=== PATIENT | female | born 1935 | race Caucasian/White ===

== ENCOUNTER → 2017-01-26 | Outpatient (CLI) | payer OTHER ==
[~2017-01-26] MED LIST: ASPI81CH2 PO; ATOR10TA82 PO; CLB/200 PO; MULT-506 PO
--- NOTE | 2017-01-27 08:28 | MAMMOGRAPHY REPORT ---
BILATERAL DIGITAL SCREENING MAMMOGRAM TOMOSYNTHESIS WITH CAD: 01/26/2017 CLINICAL HISTORY: Routine screening. Patient has no complaints. TECHNIQUE: Breast tomosynthesis in addition to standard 2D mammography was performed. Current study was also evaluated with a Computer Aided Detection (CAD) system. COMPARISON: Comparison is made to exams dated: 02/04/2016 mammogram, 02/04/2016 ultrasound, 01/24/2016 mammogram, 01/09/2015 mammogram, 11/07/2013 mammogram, and 11/03/2013 mammogram - [facility]. BREAST COMPOSITION: There are scattered areas of fibroglandular density in both breasts. FINDINGS: There are mild vascular calcifications and scattered benign-appearing round and punctate m icrocalcifications. Fluctuating masses in the lateral right breast were previously documented to re present simple cysts on ultrasound. No new suspicious mass, architectural distortion or cluster of microcalcifications is seen. IMPRESSION: ACR BI-RADS CATEGORY 1: NEGATIVE There is no mammographic evidence of malignancy. A 1 year screening mammogram is recommended. The p atient will receive written notification of the results. Approximately 10% of breast cancers are not detected with mammography. A negative mammographic repor t should not delay biopsy if a clinically suggestive mass is present. Helga De La Garza M.D. ay/:01/26/2017 17:29:02 Nurse Coordinator: Aarti WORRELL(Lita)(M), [facility] letter sent: Normal 1/2 BI-RADS Code: ACR BI-RADS Category 1: Negative
== END | disposition home or self-care (01) ==
LOC: C.MAMM 11:10
PROVIDERS: ATTEND Internal Medicine
DX: Z12.31 Encounter for screening mammogram for malignant neoplasm of breast (principal)

== ENCOUNTER → 2017-05-10 | Outpatient (CLI) | payer OTHER ==
[~2017-05-10] MED LIST changes: -ATOR10TA82 PO; +ATOR10TA88 PO
[2017-05-10 09:56] LABS: ALT/SGPT 31 U/L (12-78); AST/SGOT 26 U/L (15-37); BLOOD UREA NITROGEN 24 mg/dl (7-18); BUN/CREATININE RATIO 21.5 (10-20); CALCIUM 9.2 mg/dl (8.5-10.1); CARBON DIOXIDE 29 mmol/L (21-32); CHLORIDE 108 mmol/L (98-107); CHOLESTEROL 168 mg/dl (0-200); GLUCOSE 109 mg/dl (70-99); POTASSIUM 4.1 mmol/L (3.5-5.1); SODIUM 142 mmol/L (136-145); TRIGLYCERIDES 68 mg/dl (0-150); VERY LOW DENSITY LIPOPROT CALC 14 mg/dl
[2017-05-10 09:59] LABS: CHOLESTEROL/HDL RATIO 2.5; HDL CHOLESTEROL 66 mg/dl; LDL CHOLESTEROL CALCULATED 88 mg/dl
== END | disposition home or self-care (01) ==
LOC: C.LAB1850 07:31
PROVIDERS: ATTEND Internal Medicine
DX: E78.5 Hyperlipidemia, unspecified (principal); M81.0 Age-related osteoporosis without current pathological fracture

== ENCOUNTER → 2017-05-24 | Outpatient (CLI) | payer OTHER | END | disposition home or self-care (01) | LOC: C.MAMM 14:55 | PROVIDERS: ATTEND Internal Medicine | DX: M85.851 Other specified disorders of bone density and structure, right thigh (principal); M85.852 Other specified disorders of bone density and structure, left thigh; M85.88 Other specified disorders of bone density and structure, other site ==

== ENCOUNTER 2017-11-23 17:25 | Inpatient (IN) | payer OTHER ==
[~2017-11-23] VITALS: Ht 157.5 cm; Wt 57.2 kg
[~2017-11-23 17:25] MED LIST changes: -APIX1TAB3 PO; -CALC600T37 PO; -CHOL1000 PO; -MULT-190 PO; -OMEG10007 PO
[2017-11-23] MEDS ORDERED: MULT-190 PO (17:56)
[2017-11-23] MEDS ORDERED: CALC600T37 PO (17:56)
[2017-11-23] MEDS ORDERED: CHOL1000 PO (17:56)
[2017-11-23] MEDS ORDERED: OMEG10007 PO (17:56)
--- NOTE | 2017-11-23 18:18 | EMERGENCY ROOM VISIT NOTE ---
History Report prepared by Jerardo: Francisco Benedict Under the Supervision of: Dr. Dexter Chan M.D. First contact with patient: 17:36 Chief Complaint: ABNORMAL DIAGNOSTIC TESTING Stated Complaint: SWOLLEN RT LEG- HAD ULTRASOUND TODAY History of Present Illness The patient is a 82 year old female who presents to the Emergency Room with complaints of constant right leg swelling beginning six weeks ago. She had an outpatient ultrasound of the right lower extremity shortly prior to arrival. She was found to have blood clots and was referred to the ED. The patient denies any leg pain, numbness, weakness, palpitations, black or bloody stool, nausea, vomiting, abdominal pain, shortness of breath, or chest pain. She has no history of blood clots. She is not on any blood thinners. The patient has a history of hammer toe surgery occurring five years ago. She denies any recent trauma. She denies recent travel. The patient has no history of smoking. She is not on any hormone replacement therapies. Source of History: patient Onset: Six weeks ago Position: leg (right) Quality: other (swelling) Timing: constant Associated Symptoms: No chest pain, No SOB, No nausea, No vomiting, No abdominal pain, No melena, No hematochezia, No weakness, No numbness Note: The patient denies palpitations, or leg pain. Review of Systems See HPI for pertinent positives & negatives. A total of 10 systems reviewed and were otherwise negative. Past Medical & Surgical Medical Problems: (1) Extensive right lower extremity DVT (2) Hammer toe (3) HLD (hyperlipidemia) (4) Right arm fracture (5) Wrist pain, left Old medical records were reviewed. Nurse's notes were reviewed and I agree with. Family History Patient reports no known family medical history. Social History Smoking Status: Never Smoker Alcohol Use: none Drug Use: none Occupation Status: retired Current/Historical Medications Scheduled Aspirin (Aspirin), 81 MG PO DAILY Atorvastatin (Lipitor), 10 MG PO DAILY Calcium (Calcium), 600 MG PO DAILY Celecoxib (CeleBREX), 200 MG PO DAILY Cholecalciferol (Vitamin D3), 1,000 TAB PO DAILY Fish Oil ([place]-3), 1 CAP PO DAILY Ocuvite Preservision (Ocuvite Preservision), 1 TAB PO DAILY Allergies Coded Allergies: Naproxen (Unverified Allergy, Severe, RASH, 11/23/17) Scallop (Unverified Allergy, Severe, N/V, 11/23/17) Physical Exam Vital Signs Date Time Temp Pulse Resp B/P (MAP) Pulse Ox O2 Delivery O2 Flow Rate FiO2 11/23/17 19:47 81 20 18/121 97 Room Air 11/23/17 19:08 75 18 181/107 97 Room Air 11/23/17 17:33 36.9 76 20 171/119 96 Room Air Physical Exam General: Non-ill appearing older female in no acute distress. HEENT: Normal cephalic atraumatic. Pupils are equal round and reactive to light. Extraocular movements are intact. Oropharynx is pink with moist mucous membranes. No swelling of the mouth lips or tongue. Neck: Supple with a midline trachea. No meningeal signs or stiffness, no JVD or bruits. No Stridor. Chest: Clear to auscultation bilaterally. No wheezes or rhonchi. No increased work of breathing. Heart: regular rate and rhythm. Abdomen: Soft nontender, nondistended without rebound guarding or rigidity. Extremities: Right leg is moderately swollen at the calf and ankle. Normal motor and sensation. Normal pulse exam. Spine/Back. Non tender to palpation. No CVA tenderness Skin: Good turgor without rashes. Neurologic exam: Cranial nerves two through 12 are intact. Motor and sensation are intact and symmetrical throughout. Medical Decision & Procedures ER Provider Diagnostic Interpretation: Radiology results as stated below per my review and radiologist interpretation: CHEST ONE VIEW PORTABLE FINDINGS: Lung volumes are normal. No pneumothorax or pleural effusion is noted. There is mild lower lung reticulonodular interstitial thickening, greater on the left. There is no evidence for pulmonary edema. Cardiomediastinal silhouette is stable. IMPRESSION: 1. Bilateral lower lung interstitial thickening, greater on the left. The findings could reflect atelectasis or an infectious process. No lobar consolidation. 2. No evidence for pulmonary edema. Electronically signed by: Troy Salas M.D. 11/23/2017 6:35 PM Laboratory Results 11/23/17 18:55 Red Blood Count 4.64, Mean Corpuscular Volume 97.0, Mean Corpuscular Hemoglobin 32.8, Mean Corpuscular Hemoglobin Concent 33.8, Mean Platelet Volume 11.8, Neutrophils (%) (Auto) 54.4, Lymphocytes (%) (Auto) 33.9, Monocytes (%) (Auto) 8.7, Eosinophils (%) (Auto) 2.6, Basophils (%) (Auto) 0.2, Neutrophils # (Auto) 3.57, Lymphocytes # (Auto) 2.22, Monocytes # (Auto) 0.57, Eosinophils # (Auto) 0.17, Basophils # (Auto) 0.01 11/23/17 18:55 Test 11/23/17 18:55 11/23/17 19:00 White Blood Count 6.55 K/uL (4.8-10.8) Red Blood Count 4.64 M/uL (4.2-5.4) Hemoglobin 15.2 g/dL (12.0-16.0) Hematocrit 45.0 % (37-47) Mean Corpuscular Volume 97.0 fL (80-100) Mean Corpuscular Hemoglobin 32.8 pg (25-34) Mean Corpuscular Hemoglobin Concent 33.8 g/dl (32-36) Platelet Count 124 K/uL (130-400) Mean Platelet Volume 11.8 fL (7.4-10.4) Neutrophils (%) (Auto) 54.4 % Lymphocytes (%) (Auto) 33.9 % Monocytes (%) (Auto) 8.7 % Eosinophils (%) (Auto) 2.6 % Basophils (%) (Auto) 0.2 % Neutrophils # (Auto) 3.57 K/uL (1.4-6.5) Lymphocytes # (Auto) 2.22 K/uL (1.2-3.4) Monocytes # (Auto) 0.57 K/uL (0.11-0.59) Eosinophils # (Auto) 0.17 K/uL (0-0.5) Basophils # (Auto) 0.01 K/uL (0-0.2) RDW Standard Deviation 48.7 fL (36.4-46.3) RDW Coefficient of Variation 13.7 % (11.5-14.5) Immature Granulocyte % (Auto) 0.2 % Immature Granulocyte # (Auto) 0.01 K/uL (0.00-0.02) Anion Gap 4.0 mmol/L (3-11) Est Creatinine Clear Calc Drug Dose 38.6 ml/min Estimated GFR () 61.2 Estimated GFR (Non- 52.8 BUN/Creatinine Ratio 19.7 (10-20) Calcium Level 9.2 mg/dl (8.5-10.1) Triglycerides Level 96 mg/dl (0-150) Cholesterol Level 179 mg/dl (0-200) HDL Cholesterol 68 mg/dl LDL Cholesterol, Calculated 92 mg/dl VLDL Cholesterol, Calculated 19 mg/dl Cholesterol/HDL Ratio 2.6 Bedside Troponin I < 0.030 ng/ml (0-0.045) Laboratory studies as stated above per my review. Medications Administered Medications (Trade) Dose Ordered Sig/Colette Route Start Time Stop Time Status Last Admin Dose Admin Heparin Sodium/ Dextrose (Heparin 25,000 Unit/500ml D5W) 25,000 unit STK-MED ONCE .ROUTE 11/23/17 19:02 11/23/17 19:03 DC 11/23/17 19:07 25,000 UNIT Heparin Sodium (Porcine) (Heparin Sq 5000 Unit/0.5ml) 5,000 unit STK-MED ONCE .ROUTE 11/23/17 19:02 11/23/17 19:03 DC 11/23/17 19:06 4,000 UNIT Metoprolol Tartrate (Lopressor Tab) 12.5 mg ONE ONCE PO 11/23/17 20:00 11/23/17 20:01 DC 11/23/17 19:55 12.5 MG ECG Per My Interpretation Indication: other (DVT) Rate (beats per minute): 79 Rhythm: normal sinus Findings: no acute ischemic change, left axis deviation, no ectopy, other (LVH) Comparison ECG Date: no prior available ED Course 1736: Past medical records reviewed. The patient was evaluated in room B7, and a complete history and physical examination were performed. 0: Upon reevaluation, the patient is resting comfortably. I discussed the results and treatment plan with the patient. She verbalized agreement of the treatment plan. The patient will be evaluated for further management. 1904: I reassessed the patient. She appears comfortable, and is receiving Heparin. Medical Decision Differentials include, but are not limited to; DVT, vascular compromise, and compartment syndrome. This patient comes in as described above. She was sent over from ultrasound after having extensive DVT on ultrasound . She was seen by her doctor today . She's had swelling her legs for the last several weeks no chest pain or shortness breath or any other symptoms. No numbness or weakness. On exam, she has some swelling but has normal neurovascular status. No evidence to suggest cellulitis. EKG does not suggest acute coronary syndrome or arrhythmia. Given the fact that there is an extensive clot burden and this was unprovoked and she' s 82 and lives alone ,I do think she needs to be admitted/observed for anticoagulation. I started her on standard IV heparin bolus and drip. I have consulted the [facility] hospitalist this evening her for these measures. Medication Reconcilliation Current Medication List: was personally reviewed by me Blood Pressure Screening Patient's blood pressure: Elevated blood pressure Blood pressure disposition: Referred to PCP Consults Time Called: 1809 Consulting Physician: Dr. Dimitry Aden [facility] Hospitalist Returned Call: [phone] Discussed the patient's case. The patient will be evaluated for further management. Impression Primary Impression: Extensive right lower extremity DVT Scribe Attestation The scribe's documentation has been prepared under my direction and personally reviewed by me in its entirety. I confirm that the note above accurately reflects all work, treatment, procedures, and medical decision making performed by me. Departure Information Dispostion Being Evaluated By Hospitalist Referrals Demetris Elias M.D. (PCP) Patient Instructions [facility]
--- NOTE | 2017-11-23 18:37 | DIAGNOSTIC IMAGING REPORT ---
CHEST ONE VIEW PORTABLE CLINICAL HISTORY: Chest pain. COMPARISON STUDY: Chest CT May 01, 2013. FINDINGS: Lung volumes are normal. No pneumothorax or pleural effusion is noted. There is mild lower lung reticulonodular interstitial thickening, greater on the left. There is no evidence for pulmonary edema. Cardiomediastinal silhouette is stable. IMPRESSION: 1. Bilateral lower lung interstitial thickening, greater on the left. The findings could reflect atelectasis or an infectious process. No lobar consolidation. 2. No evidence for pulmonary edema. Electronically signed by: Troy Salas M.D. 11/23/2017 6:35 PM Dictated Date/Time: 11/23/2017 6:34 PM
[2017-11-23] MEDS ORDERED: HEPARIN 25000 UNIT/500 ML D5W ONE (19:02)
[2017-11-23] MEDS ORDERED: HEPARIN SOD 5000 UNIT/0.5 ML CARP ONE (19:02)
--- NOTE | 2017-11-23 19:10 | History and Physical ---
History & Physical Date & Time of Service: Nov 23, 2017 at 19:04 Chief Complaint: Swollen Rt Leg- Had Ultrasound Today Primary Care Physician: Demetris Elias M.D. History of Present Illness Source: patient, family 82-year-old female with past medical history of arthritis, was found in the ED to have also high blood pressure but the patient was not aware of it. Patient 6 weeks ago noticed pain in her right lower extremity. She tried to ignore it and try to massage his leg her leg. After that she developed swelling in her right lower extremity. She was seeing her signal helper today who asked her to do an ultrasound. Ultrasound showed extensive DVT in right lower extremity. Patient lives alone and will be admitted for initiation of anticoagulation. Patient denies any recent travel, denies any recent sickness where she has to lay down without movement. Patient was instructed to have a cancer screening as an outpatient to rule out underlying underlying medical. Family History Patient reports no known family medical history. Social History Smoking Status: Never Smoker Drug Use: none Occupational Status: retired Multi-Drug Resistant Organisms History of MDRO: No Allergies Coded Allergies: Naproxen (Unverified Allergy, Severe, RASH, 11/23/17) Scallop (Unverified Allergy, Severe, N/V, 11/23/17) Home Medications Scheduled Aspirin (Aspirin), 81 MG PO DAILY Atorvastatin (Lipitor), 10 MG PO DAILY Calcium (Calcium), 600 MG PO DAILY Celecoxib (CeleBREX), 200 MG PO DAILY Cholecalciferol (Vitamin D3), 1,000 TAB PO DAILY Fish Oil ([place]-3), 1 CAP PO DAILY Ocuvite Preservision (Ocuvite Preservision), 1 TAB PO DAILY Review of Systems Review of system Constitutional: No fever / no chills / no sweats / no weakness / no fatigue Eyes: no blurring of vision / no eye pain / no discharge / no redness ENT: no hearing loss / no epistaxis /no swallowing problems Respiratory: no cough / no wheezing / no SOB / no hemoptysis Cardiovascular: no Chest pain / no lower extremity edema / no palpitation Abdomen: no pain / no nausea / no vomiting / no constipation Musculoskeletal: Right lower extremity swelling/edema/tenderness Genitourinary: no dysuria / no incontinence / no urinary retention Neurologic: no focal weakness / no numbness/tingling / no ataxia Psychiatric: no depression symptoms / no anxiety / no insomnia Endocrine: no excessive thirst / no excessive urination Hematologic: no abnormal bleeding / no bruising / no LN swelling Skin: No rash / no pallor Physical Exam Vital Signs Date Time Temp Pulse Resp B/P (MAP) Pulse Ox O2 Delivery O2 Flow Rate FiO2 11/23/17 17:33 36.9 76 20 171/119 96 Room Air Physical examination General patient appears to be comfortable, not in acute distress HEENT: Atraumatic , normocephalic /no jaundice /no pallor /anicteric /no dry mucous membrane /normal external ear inspection Neck: Supple /no swelling /central trach Heart: S1/S2 normal/regular rate and rhythm/no gallop /no rub /no murmur Lungs: Clear to auscultation bilaterally/normal chest with expansion/no rhonchi/ no rales/no wheezing/no use of accessory muscles of respiration Abdomen: Soft/nontender/no guarding/no rebound/no organomegaly/no pulsatile mass Musculoskeletal: Right lower extremity swelling/tenderness Neuro exam: Awake alert oriented 3/cranial nerves II through XII appear to be intact/sensation intact/moves all extremities/no abnormal movements Psychiatric evaluation: No depressed mood/normal affect Skin: No rash on exposed skin area/no erythema Extremity: Normal pulse/no pitting edema/no clubbing or cyanosis Endocrine/lymphatic: No obvious lymphadenopathy /no lymphedema Diagnostics Laboratory Results Results Past 24 Hours Test 11/23/17 18:14 Range/Units Impression Assessment and Plan 82-year-old female who lives alone presented to the ED with unprovoked extensive right lower extremity DVT. Was found in ED to have hypertensive urgency. Assessment Unprovoked extensive right lower extremity DVT Hypertensive urgency, new diagnosis Arthritis Plan Admit patient to telemetry Start patient on heparin drip for now, consult instrument mechanics supervisor in a.m. to check her eligibility for Eliquis We will start patient on low-dose Toprol, avoid amlodipine due to already pre- existing lower extremity swelling Monitor heart rate and blood pressure. As needed hydralazine for systolic blood pressure more than 180 Patient instructed not to use any nonsteroidal anti-inflammatory drugs or over- the-counter pain medications except Tylenol due to the initiation of anticoagulation therapy Patient is instructed to follow-up with primary care physician for cancer screening. VTE Prophylaxis Given or contraindicated: Unfractionated heparin SQ
[2017-11-23 19:14] LABS: BASO % 0.2 %; BASO ABS # 0.01 K/uL (0-0.2); EOS % 2.6 %; EOS ABS # 0.17 K/uL (0-0.5); HEMOGLOBIN 15.2 g/dL (12.0-16.0); IG# 0.01 K/uL (0.00-0.02); LYMPH % 33.9 %; LYMPH ABS # 2.22 K/uL (1.2-3.4); MEAN CORPUSCULAR HEMOGLOBIN 32.8 pg (25-34); MEAN CORPUSCULAR HGB CONC 33.8 g/dl (32-36); MEAN PLATELET VOLUME 11.8 fL (7.4-10.4); MONO % 8.7 %; MONO ABS # 0.57 K/uL (0.11-0.59); NEUT % 54.4 %; NEUT ABS # 3.57 K/uL (1.4-6.5); PLATELET COUNT 124 K/uL (130-400); RED CELL DISTRIBUTION WIDTH CV 13.7 % (11.5-14.5); RED CELL DISTRIBUTION WIDTH SD 48.7 fL (36.4-46.3); WHITE BLOOD COUNT 6.55 K/uL (4.8-10.8)
[2017-11-23] MEDS ORDERED: ALUMINUM/MAGNESIUM/SIMETH (MAALOX MAX) 30 ML UDC PO PRN (19:15)
[2017-11-23] MEDS ORDERED: ZOLPIDEM TARTRATE 5 MG TAB PO PRN ×2 (19:15)
[2017-11-23] MEDS ORDERED: HydrALAZINE HCL 20 MG/ML VIAL IV. PRN (19:15)
[2017-11-23] MEDS ORDERED: ACETAMINOPHEN 325 MG TAB PO PRN (19:15)
[2017-11-23] MEDS ORDERED: ONDANSETRON INJ 2 MG/ML 2 ML VIAL IV PRN (19:15)
[2017-11-23] MEDS ORDERED: POLYETHYLENE (MIRALAX) 17 GM PACK PO PRN (19:15)
[2017-11-23] MEDS ORDERED: MAGNESIUM HYDROXIDE SUSP 30 ML UDC PO PRN (19:15)
[2017-11-23 19:30] LABS: CALCIUM 9.2 mg/dl (8.5-10.1); POTASSIUM 3.8 mmol/L (3.5-5.1)
[2017-11-23] MEDS ORDERED: METOPROLOL TARTRATE 25 MG TAB PO ONE (20:00)
[2017-11-23 20:30] VITALS: BP 156/88; PULSE 71; TEMP 36.6; O2SAT 97; Ht 157.5 cm; Wt 57.2 kg
[2017-11-23] MEDS ORDERED: HEPARIN 25,000 UNIT/500ML D5W 500 ML IV PRN (23:45)
[2017-11-24 00:01] VITALS: BP 121/83; PULSE 68; TEMP 36.6; O2SAT 96
[2017-11-24 03:37] VITALS: BP 148/99; PULSE 88; TEMP 37; O2SAT 93
[2017-11-24 04:47] LABS: PTT PATIENT 67.5 SECONDS (21.0-31.0)
[2017-11-24 07:53] VITALS: BP 137/91; PULSE 71; TEMP 36.7; O2SAT 96
[2017-11-24 08:27] LABS: ALBUMIN 3.5 gm/dl (3.4-5.0); CALCIUM 8.7 mg/dl (8.5-10.1); CREATININE 0.92 mg/dl (0.60-1.20)
[2017-11-24 08:32] LABS: TOTAL PROTEIN 7.1 gm/dl (6.4-8.2)
[2017-11-24 08:33] LABS: PTT PATIENT 62.3 SECONDS (21.0-31.0)
[2017-11-24 08:34] LABS: BASO % 0.5 %; BASO ABS # 0.03 K/uL (0-0.2); EOS % 2.7 %; EOS ABS # 0.17 K/uL (0-0.5); IG# 0.02 K/uL (0.00-0.02); LYMPH % 30.7 %; LYMPH ABS # 1.91 K/uL (1.2-3.4); MEAN CELL VOLUME 96.9 fL (80-100); MEAN CORPUSCULAR HGB CONC 34.1 g/dl (32-36); MONO % 11.9 %; MONO ABS # 0.74 K/uL (0.11-0.59); NEUT % 53.9 %; NEUT ABS # 3.35 K/uL (1.4-6.5); PLATELET COUNT 124 K/uL (130-400); RED CELL DISTRIBUTION WIDTH CV 13.6 % (11.5-14.5); RED CELL DISTRIBUTION WIDTH SD 48.7 fL (36.4-46.3); WHITE BLOOD COUNT 6.22 K/uL (4.8-10.8)
[2017-11-24] MEDS ORDERED: METOPROLOL TARTRATE 25 MG TAB PO SCH (09:00)
[2017-11-24] MEDS ORDERED: ATORVASTATIN 10 MG TAB PO SCH (09:00)
[2017-11-24] MEDS ORDERED: CEROVITE ADV FORMULA TAB PO SCH (09:00)
[2017-11-24] MEDS ORDERED: CALCIUM 600MG + VIT D 400 IU TAB PO SCH (09:00)
--- NOTE | 2017-11-24 11:35 | Family Medicine Progress Note ---
Progress Note Date of Service Nov 24, 2017. Subjective Pt resting comfortably in bed this morning. Reports she has had right leg swelling since about mid-September, had called PCP to make appointment and they decided to just observe for now. Was then seen by journeyman meat cutter this week, and they recommended she be seen by PCP right away. PCP ordered LE US and discovered extensive thrombus in sup femoral as well as other vessels. Pt reports the swelling has decreased since admission. Is tolerating treatment. Normally is quite active, denies h/o immobility. Reports she sees her PCP regularly and is UTD with colonoscopy and mammogram. Denies SOB, chest pain, headache, abdominal pain or nausea. ROS See HPI for pertinent positives and negatives. Medications Current Inpatient Medications Medications (Trade) Dose Ordered Sig/Colette Route Start Time Stop Time Status Last Admin Dose Admin Atorvastatin Calcium (Lipitor Tab) 10 mg DAILY PO 11/24/17 09:00 12/24/17 08:59 11/24/17 08:45 10 MG Multivitamins/ Minerals (Multivitamin W/ Minerals Tab) 1 tab DAILY PO 11/24/17 09:00 12/24/17 08:59 11/24/17 08:45 1 TAB Calcium/Vitamin D (Caltrate Plus Tab) 1 tab DAILY PO 11/24/17 09:00 12/24/17 08:59 11/24/17 08:44 1 TAB Metoprolol Tartrate (Lopressor Tab) 12.5 mg BID PO 11/24/17 09:00 12/24/17 08:59 11/24/17 08:44 12.5 MG Hydralazine HCl (HydrALAZINE INJ) 10 mg Q8H PRN IV. 11/23/17 19:15 12/23/17 19:14 Acetaminophen (Tylenol Tab) 650 mg Q4H PRN PO 11/23/17 19:15 12/23/17 19:14 11/24/17 04:43 650 MG Al Hydrox/Mg Hydrox/Simethicone (Maalox Max Susp) 15 ml Q4H PRN PO 11/23/17 19:15 12/23/17 19:14 Magnesium Hydroxide (Milk Of Magnesia Susp) 30 ml Q12H PRN PO 11/23/17 19:15 12/23/17 19:14 Zolpidem Tartrate (Ambien Tab) 5 mg HSZ PRN PO 11/23/17 19:15 12/23/17 19:14 Ondansetron HCl (Zofran Inj) 4 mg Q6H PRN IV 11/23/17 19:15 12/23/17 19:14 Polyethylene (Miralax Powder Packet) 17 gm DAILY PRN PO 11/23/17 19:15 12/23/17 19:14 Heparin Sodium/ Dextrose 500 ml @ 17 mls/hr Q24H PRN IV 11/23/17 23:45 12/23/17 23:44 11/24/17 03:35 17 MLS/HR Objective Vital Signs Date Time Temp Pulse Resp B/P (MAP) Pulse Ox O2 Delivery O2 Flow Rate FiO2 11/24/17 11:14 Room Air 11/24/17 08:20 Room Air 11/24/17 07:53 36.7 71 18 137/91 (106) 96 11/24/17 04:45 Room Air 11/24/17 03:37 37.0 88 18 148/99 (115) 93 11/24/17 00:01 36.6 68 16 121/83 (96) 96 Room Air 11/23/17 23:15 Room Air 11/23/17 20:30 36.6 71 18 156/88 97 Room Air 11/23/17 19:47 81 20 18/121 97 Room Air 11/23/17 19:08 75 18 181/107 97 Room Air 11/23/17 17:33 36.9 76 20 171/119 96 Room Air Physical Exam Notes: GENERAL: Awake, alert, well-appearing, in no distress HENT: Normocephalic, atraumatic. EYES: Normal conjunctiva. Sclera non-icteric. NECK: Supple. No nuchal rigidity. FROM. No JVD. RESPIRATORY: Clear to auscultation. CARDIAC: Regular rate, normal rhythm. Extremities warm and well perfused. Pulses equal. ABDOMEN: Soft, non-distended. No tenderness to palpation. No rebound or guarding. No masses. LOWER EXTREMITIES: RT calf > LT calf. Non-tender bilaterally. NEURO: No motor deficits noted. SKIN: No rash or jaundice noted. Laboratory Results 11/24/17 07:20 Red Blood Count 4.54, Mean Corpuscular Volume 96.9, Mean Corpuscular Hemoglobin 33.0, Mean Corpuscular Hemoglobin Concent 34.1, Mean Platelet Volume 12.0, Neutrophils (%) (Auto) 53.9, Lymphocytes (%) (Auto) 30.7, Monocytes (%) (Auto) 11.9, Eosinophils (%) (Auto) 2.7, Basophils (%) (Auto) 0.5, Neutrophils # (Auto ) 3.35, Lymphocytes # (Auto) 1.91, Monocytes # (Auto) 0.74, Eosinophils # (Auto ) 0.17, Basophils # (Auto) 0.03 11/24/17 07:20 Test 11/23/17 18:55 11/23/17 19:00 11/24/17 07:20 Triglycerides Level 96 mg/dl (0-150) Cholesterol Level 179 mg/dl (0-200) HDL Cholesterol 68 mg/dl LDL Cholesterol, Calculated 92 mg/dl VLDL Cholesterol, Calculated 19 mg/dl Cholesterol/HDL Ratio 2.6 Bedside Troponin I < 0.030 ng/ml (0-0.045) White Blood Count 6.22 K/uL (4.8-10.8) Red Blood Count 4.54 M/uL (4.2-5.4) Hemoglobin 15.0 g/dL (12.0-16.0) Hematocrit 44.0 % (37-47) Mean Corpuscular Volume 96.9 fL (80-100) Mean Corpuscular Hemoglobin 33.0 pg (25-34) Mean Corpuscular Hemoglobin Concent 34.1 g/dl (32-36) Platelet Count 124 K/uL (130-400) Mean Platelet Volume 12.0 fL (7.4-10.4) Neutrophils (%) (Auto) 53.9 % Lymphocytes (%) (Auto) 30.7 % Monocytes (%) (Auto) 11.9 % Eosinophils (%) (Auto) 2.7 % Basophils (%) (Auto) 0.5 % Neutrophils # (Auto) 3.35 K/uL (1.4-6.5) Lymphocytes # (Auto) 1.91 K/uL (1.2-3.4) Monocytes # (Auto) 0.74 K/uL (0.11-0.59) Eosinophils # (Auto) 0.17 K/uL (0-0.5) Basophils # (Auto) 0.03 K/uL (0-0.2) RDW Standard Deviation 48.7 fL (36.4-46.3) RDW Coefficient of Variation 13.6 % (11.5-14.5) Immature Granulocyte % (Auto) 0.3 % Immature Granulocyte # (Auto) 0.02 K/uL (0.00-0.02) Platelet Estimate DECREASED Activated Partial Thromboplast Time 62.3 SECONDS (21.0-31.0) Partial Thromboplastin Ratio 2.4 Anion Gap 6.0 mmol/L (3-11) Est Creatinine Clear Calc Drug Dose 37.9 ml/min Estimated GFR () 67.7 Estimated GFR (Non- 58.4 BUN/Creatinine Ratio 18.4 (10-20) Calcium Level 8.7 mg/dl (8.5-10.1) Magnesium Level 2.5 mg/dl (1.8-2.4) Total Bilirubin 0.8 mg/dl (0.2-1) Aspartate Amino Transf (AST/SGOT) 23 U/L (15-37) Alanine Aminotransferase (ALT/SGPT) 28 U/L (12-78) Alkaline Phosphatase 74 U/L (45-117) Total Protein 7.1 gm/dl (6.4-8.2) Albumin 3.5 gm/dl (3.4-5.0) Globulin 3.6 gm/dl (2.5-4.0) Albumin/Globulin Ratio 1.0 (0.9-2) Assessment and Plan 82 yoF here with PMH of arthiritis, here for unprovoked extensive DVT of RLE. Imaging: RIGHT LOWER EXTREMITY VENOUS DOPPLER CLINICAL HISTORY: Right leg pain and swelling. COMPARISON STUDY: No previous studies for comparison. TECHNIQUE: Sonography of the deep venous system of the right lower extremity was performed. Compression and augmentation were evaluated. FINDINGS: There is extensive deep venous thrombus within the right lower extremity. Specifically, there is thrombus within the right superficial femoral, popliteal, posterior tibial and peroneal veins. This thrombus is nearly occlusive. Several these vessels are expanded. IMPRESSION: Extensive deep venous thrombus within the right lower extremity which is likely acute. DVT - on Tele, shows sinus rhythm in 70s with few PJC's - On heparin drip - reviewing insurance options for Eliquis vs warfarin, discussed with pt risks/ benefits of either medication, equal efficacy. Pt amenable to either. Hypertensive urgency - resolved Arthritis - on celebrex normally -- will only be able to use tylenol while on anticoagulation. HLD - continue statin DVT: heparin as above Code: full Dispo: anticipate DC today. Resident Physician Supervision Note: I was present with Dr. Baltazar during the history and exam. I discussed the case with the resident and agree with the findings and plan as documented in the note. The patient reports that she developed RLE swelling about 3-4 weeks ago, so this sounds more of a subacute DVT. There is no provoking event that I can identify; she reports no prior history of VTE; she is adopted so family history is unknown. It sounds as if her routine cancer screenings are up to date. Hopefully will transition to novel agent this afternoon and discharge. She will have follow-up with Dr. Elias in the next two weeks for further investigation. Documented By: Kyree Brownlee Resident Tracking Resident Involvement: Resident Care Provided Care Provided: Adult [facility]
[2017-11-24 11:51] VITALS: BP 137/91; PULSE 80; TEMP 36.6; O2SAT 97
[2017-11-24] MEDS ORDERED: APIX1TAB3 PO (14:27)
--- NOTE | 2017-11-24 14:34 | Discharge Instructions ---
Discharge Instructions Date of Service Nov 24, 2017. Admission Reason for Admission: Extensive Right Lower Extremity Dvt Discharge Discharge Diagnosis / Problem: DVT Discharge Goals Goal(s): Therapeutic intervention Activity Recommendations Activity Limitations: resume your previous activity Shower/Bathe: no limitations . Instructions / Follow-Up Instructions / Follow-Up You were admitted to the hospital for the treatment of the extensive DVT ( deep vein thrombosis) in your right lower extremity. A DVT is a clot which can occur in the deep veins in your legs. This can occur for a number of reasons and risk factors do include long drives/ plane rides without moving, being on hormone replacement therapy or even your family history. A lot of the time we really do not know the exact cause/ time that could have caused the DVT to develop. When you were originally admitted to the hospital you were started on an anticoagulant "drip" called heparin. We continued this anticoagulant (blood thinner) overnight which allowed us time to determine what the best method of treatment would be. As you are a candidate for what we call "novel " agents this will be the best choice for your treatment. It allows you to continue your treatment for the DVT without the frequent blood sticks to monitor your blood levels. This medication does have similar risks of bleeding to Warfarin and we recommend that if you develop a bloody nose which does not resolve in 20 minutes of CONSTANT pressure held, extensive bruising from a fall, nausea or vomiting/ headache after you hit your head or fall please come to the ED for evaluation. This medication will be taken once in the morning and once at night. You will continue this medication to the discretion of your PCP. We recommend a follow up with Dr Elias next week for reassessment. We wish you colin Rhodes Current Hospital Diet Patient's current hospital diet: Regular Diet Discharge Diet Recommended Diet: Regular Diet Pending Studies Studies pending at discharge: no Laboratory Results Lipid Panel Test 11/23/17 18:55 Range/Units Triglycerides Level 96 0-150 mg/dl Cholesterol Level 179 0-200 mg/dl HDL Cholesterol 68 mg/dl Cholesterol/HDL Ratio 2.6 LDL Cholesterol, Calculated 92 mg/dl Medical Emergencies . Who to Call and When: Medical Emergencies: If at any time you feel your situation is an emergency, please call 911 immediately. . Non-Emergent Contact Non-Emergency issues call your: Primary Care Provider . . "Provider Documentation" section prepared by Mee Rhodes. . VTE Core Measure Inpt VTE Proph given/why not?: Other Anticoagulation
[2017-11-24] MEDS ORDERED: APIXABAN 2.5 MG TAB PO ONE (15:00)
[2017-11-24 15:19] VITALS: BP 129/74; PULSE 79; TEMP 37; O2SAT 96
[2017-11-24 17:16] VITALS: BP 129/74; PULSE 79; TEMP 37; O2SAT 96
--- NOTE | 2017-11-24 21:33 | Discharge Summary ---
Discharge Summary Date of Service Nov 24, 2017. Discharge Summary Admission Date: Nov 23, 2017 at 19:15 Discharge Date: Nov 24, 2017 Discharge Disposition: Home Principal Diagnosis: DVT RLE Procedures: Outside records: Imaging: RIGHT LOWER EXTREMITY VENOUS DOPPLER CLINICAL HISTORY: Right leg pain and swelling. COMPARISON STUDY: No previous studies for comparison. TECHNIQUE: Sonography of the deep venous system of the right lower extremity was performed. Compression and augmentation were evaluated. FINDINGS: There is extensive deep venous thrombus within the right lower extremity. Specifically, there is thrombus within the right superficial femoral, popliteal, posterior tibial and peroneal veins. This thrombus is nearly occlusive. Several these vessels are expanded. IMPRESSION: Extensive deep venous thrombus within the right lower extremity which is likely acute. Medication Reconciliation New Medications: Apixaban (Eliquis) 5 Mg Tab 10 MG PO BID for 7 Days, #28 TAB Continued Medications: Atorvastatin (Lipitor) 10 Mg Tab 10 MG PO DAILY, TAB Calcium (Calcium) 600 Mg Tab 600 MG PO DAILY Celecoxib (CeleBREX) 200 Mg Cap 200 MG PO DAILY, CAP Cholecalciferol (Vitamin D3) 1,000 Unit Tab 1000 TAB PO DAILY for 90 Days, TAB 3 Refills Ocuvite Preservision (Ocuvite Preservision) 1 Tab Tab 1 TAB PO DAILY, TAB Discontinued Medications: Aspirin (Aspirin) 81 Mg Chw 81 MG PO DAILY Fish Oil (Palms-3) 1 Ea Cap 1 CAP PO DAILY, CAP Discharge Exam Pt resting comfortably in bed this morning. Reports she has had right leg swelling since about mid-September, had called PCP to make appointment and they decided to just observe for now. Was then seen by director of institutional research this week, and they recommended she be seen by PCP right away. PCP ordered LE US and discovered extensive thrombus in sup femoral as well as other vessels. Pt reports the swelling has decreased since admission. Is tolerating treatment. Normally is quite active, denies h/o immobility. Reports she sees her PCP regularly and is UTD with colonoscopy and mammogram. Denies SOB, chest pain, headache, abdominal pain or nausea. ROS See HPI for pertinent positives and negatives. Physical Exam GENERAL: Awake, alert, well-appearing, in no distress HENT: Normocephalic, atraumatic. EYES: Normal conjunctiva. Sclera non-icteric. NECK: Supple. No nuchal rigidity. FROM. No JVD. RESPIRATORY: Clear to auscultation. CARDIAC: Regular rate, normal rhythm. Extremities warm and well perfused. Pulses equal. ABDOMEN: Soft, non-distended. No tenderness to palpation. No rebound or guarding. No masses. LOWER EXTREMITIES: RT calf > LT calf. Non-tender bilaterally. NEURO: No motor deficits noted. SKIN: No rash or jaundice noted. Hospital Course 82 yoF here with PMH of arthiritis, here for unprovoked extensive DVT of RLE. Reports that she developed RLE swelling about 3-4 weeks ago, so this sounds more of a subacute DVT. There is no provoking event that is identifiable ; she reports no prior history of VTE; she is adopted so family history is unknown. It sounds as if her routine cancer screenings are up to date. Discharged on Eliquis, recommend 3-6 months duration. For more details on hospital course, please see below. Thank you for allowing us to participate in Ms. Velázquez's care. DVT - sinus rhythm on Tele - On heparin drip here, discharged on Eliquis - Reviewed Eliquis vs warfarin, discussed with pt risks/benefits of either medication, equal efficacy. Pt amenable to either, settled on Eliquis. Hypertensive urgency SBP as high as 180 - resolved Arthritis - on celebrex normally -- caution while on anticoagulation for bleeding risk. HLD - continue statin Resident Physician Supervision Note: I was present with Dr. Baltazar during the history and exam. I discussed the case with the resident and agree with the findings and plan as documented in the note. Please see progress note of the same date for additional details. PLAN 1) Eliquis 10 mg BID for a week, then reduce to 5 mg BID. 2) Follow up with PCP for discussion regarding duration of anticoagulation and further work of regarding etiology of her VTE. Documented By: Kyree Brownlee Total Time Spent: Greater than 30 minutes This includes examination of the patient, discharge planning, medication reconciliation, and communication with other providers. Discharge Instructions Please refer to the electronic Patient Visit Report (Discharge Instructions) for additional information. Follow-Up Follow up scheduled with PCP for early next week. Additional Copies To Demetris Elias M.D.
== END 2017-11-24 18:15 | disposition home or self-care (01) | DRG 301 ==
LOC: C.EDB 17:26 → C.2T 19:15 → ENRESERV 19:24
PROVIDERS: ADMIT Internal Medicine; ATTEND Family Medicine
DX: I82.411 Acute embolism and thrombosis of right femoral vein (principal); I16.0 Hypertensive urgency; I82.431 Acute embolism and thrombosis of right popliteal vein; I82.441 Acute embolism and thrombosis of right tibial vein; I82.491 Acute embolism and thrombosis of other specified deep vein of right lower extremity; E78.5 Hyperlipidemia, unspecified; M19.90 Unspecified osteoarthritis, unspecified site; Z79.899 Other long term (current) drug therapy; Z79.82 Long term (current) use of aspirin; Z88.6 Allergy status to analgesic agent; Z91.013 Allergy to seafood

== ENCOUNTER → 2017-11-23 | Outpatient (CLI) | payer OTHER ==
[~2017-11-23] MED LIST changes: +APIX1TAB3 PO; +ATOR10TA82 PO; -ATOR10TA88 PO; +CALC600T37 PO; +CHOL1000 PO; +MULT-190 PO; +OMEG10007 PO
[2017-11-23 16:36] LABS: BASO % 0.3 %; BASO ABS # 0.02 K/uL (0-0.2); EOS % 2.7 %; HEMATOCRIT 44.3 % (37-47); HEMOGLOBIN 14.9 g/dL (12.0-16.0); IG# 0.02 K/uL (0.00-0.02); LYMPH % 31.6 %; LYMPH ABS # 2.36 K/uL (1.2-3.4); MEAN CORPUSCULAR HGB CONC 33.6 g/dl (32-36); MEAN PLATELET VOLUME 12.4 fL (7.4-10.4); MONO % 9.7 %; MONO ABS # 0.72 K/uL (0.11-0.59); NEUT % 55.4 %; NEUT ABS # 4.14 K/uL (1.4-6.5); PLATELET COUNT 131 K/uL (130-400); RED CELL DISTRIBUTION WIDTH CV 13.8 % (11.5-14.5); RED CELL DISTRIBUTION WIDTH SD 49.1 fL (36.4-46.3); WHITE BLOOD COUNT 7.46 K/uL (4.8-10.8)
[2017-11-23 17:03] LABS: ALBUMIN 3.7 gm/dl (3.4-5.0); ALT/SGPT 31 U/L (12-78); BLOOD UREA NITROGEN 20 mg/dl (7-18); CALCIUM 9.3 mg/dl (8.5-10.1); CARBON DIOXIDE 31 mmol/L (21-32); CREATININE 1.03 mg/dl (0.60-1.20); GLUCOSE 99 mg/dl (70-99); POTASSIUM 3.8 mmol/L (3.5-5.1); SODIUM 141 mmol/L (136-145)
[2017-11-23 17:06] LABS: ALKALINE PHOSPHATASE 82 U/L (45-117); AST/SGOT 28 U/L (15-37); TOTAL PROTEIN 7.4 gm/dl (6.4-8.2)
== END | disposition home or self-care (01) ==
LOC: C.LAB1850 15:27
PROVIDERS: ATTEND Internal Medicine
DX: M79.89 Other specified soft tissue disorders (principal)

== ENCOUNTER → 2017-11-23 | Outpatient (CLI) | payer OTHER ==
--- NOTE | 2017-11-23 16:59 | DIAGNOSTIC IMAGING REPORT ---
RIGHT LOWER EXTREMITY VENOUS DOPPLER CLINICAL HISTORY: Right leg pain and swelling. COMPARISON STUDY: No previous studies for comparison. TECHNIQUE: Sonography of the deep venous system of the right lower extremity was performed. Compression and augmentation were evaluated. FINDINGS: There is extensive deep venous thrombus within the right lower extremity. Specifically, there is thrombus within the right superficial femoral, popliteal, posterior tibial and peroneal veins. This thrombus is nearly occlusive. Several these vessels are expanded. IMPRESSION: Extensive deep venous thrombus within the right lower extremity which is likely acute. Electronically signed by: Troy Salas M.D. 11/23/2017 4:57 PM Dictated Date/Time: 11/23/2017 4:56 PM
== END | disposition home or self-care (01) ==
LOC: C.ULTR 15:50
PROVIDERS: ATTEND Internal Medicine
DX: I82.4Z1 Acute embolism and thrombosis of unspecified deep veins of right distal lower extremity (principal)

== ENCOUNTER 2022-06-23 15:30 | Inpatient (IN) ==
[2022-06-23] MEDS ORDERED: SODIUM CHLORIDE 0.9% 250 ML IV PRN ×2 (16:02→16:47)
[2022-06-23] MEDS ORDERED: PANTOprazole 80 MG in DEXTROSE 5% 100 ML IV ONE (16:02)
[2022-06-23 16:39] LABS: INR 1.1 (0.9-1.1); Partial Thromboplastin Ratio 0.9; Partial Thromboplastin Time 23.5 Seconds (21.0-31.0); Prothrombin Time 11.4 Seconds (9.0-12.0)
--- NOTE | 2022-06-23 16:58 | Emergency Department Note ---
History of Present Illness General Chief complaint: Shortness of Breath/Dyspnea Stated complaint: SOB on exertion hgb 4.6 Time Seen by Provider: 06/23/22 15:38 History of Present Illness This 87-year-old female patient presents to the emergency department via EMS from [facility] for hemoglobin of 4.7 and shortness of breath. The patient states that she was evaluated as an outpatient for shortness of breath that started 10 days ago. She denies any fever, chills, cough, or other URI symptoms. Denies any chest pain. Has a history of chronic low back pain, but denies any significant low back pain on exam. Outpatient labs revealed a hemoglobin of 4.7, hematocrit 15.6, MCV 76.1, platelets 200, BUN 29, and creatinine 1.29. Chest x-ray as an outpatient showed calcified aortic knob with mildly torturous aorta, but no evidence for pneumonia or other acute abnormalities. She also had an outpatient x-ray of the lumbar spine that showed chronic severe L1 compression deformity, but no acute findings. The patient was sent to the emergency department via EMS after the results of her blood work were received. The patient denies any known hematochezia, melena, hematuria, hemoptysis, or hematemesis. She denies any pain or symptoms other than SOB. She denies any abdominal pain, nausea, or vomiting. She denies any chest pain. She denies any headache, blurry vision, or neurological symptoms. She denies any urinary symptoms or abnormalities with her bowel movements. She is on Eliquis for history of DVT "years ago" per patient. She does not believe she takes any additional NSAIDs as an outpatient. However, Celebrex is listed on her medication list - unsure if she is taking. She does take Tylenol as needed for pain. She thinks she had an EGD and colonoscopy done many years ago, but does not remember where or when. She states that she thinks they were normal. Home Medications Medication Instructions Recorded Confirmed Type cholecalciferol (vitamin D3) 50 See Rx Instructions PO .COMPLEX 08/31/19 06/23/22 History mcg (2,000 unit) capsule meclizine 25 mg tablet 25 mg PO BID #60 tabs 03/28/20 06/23/22 Rx atorvastatin 10 mg tablet 10 mg PO DAILY #90 tabs 09/15/21 06/23/22 Rx ibandronate 150 mg tablet See Rx Instructions .Route 12/11/21 06/23/22 Rx .COMPLEX ##3 celecoxib 200 mg capsule (Celebrex) 200 mg PO DAILY #90 caps 04/15/22 06/23/22 Rx acetaminophen 325 mg capsule 325 mg PO QID PRN as directed 06/19/22 06/23/22 History (Tylenol) apixaban 5 mg tablet (Eliquis) 5 mg PO BID 06/19/22 06/23/22 History vit C 150 mg-vit E 30 unit-lutein 1 cap PO .Q3W 06/19/22 06/23/22 History 5 jb-laqohkva-rltge 3 150 mg capsule (Ocuvite) Allergies Allergy/AdvReac Type Severity Reaction Status Date / Time naproxen Allergy Severe RASH Unverified 06/19/22 15:55 scallops Allergy Severe N/V Unverified 06/19/22 15:55 Past Med/Surg History Medical History Abnormal mammogram Anemia Anticardiolipin antibody syndrome Carotid artery plaque Coccyx pain Deep vein thrombosis, lower right extremity Fibrocystic breast disease History of cardiac murmur HLD (hyperlipidemia) Osteoarthritis Osteoporosis Sacroiliitis Surgical History Bunion Family History Family/Other No problems noted. Other Adopted Social History Smoking Status: Never smoker Second Hand Exposure: No; Tobacco Cessation Education Requested by Patient: No Hx Alcohol Use: Yes Alcohol type: wine Hx Substance Use: No Preferred Language: Greenlandic Communication Ability: Effective Director Data Analytics Required: No Beliefs That Will Affect Care: None marital status: / Current Living Situation: Personal Care Facility Current Living Situation Comment: lives at [facility] living current occupational status: retired Other Information That Helps Us Care for You: No Feels Safe at Home: Yes Safety Concerns: Feels Safe At This Time Childhood Exposure to Second-Hand Smoke: Yes caffeine: Yes Dental Care, Regularly: Yes Physical Activity Frequency: Daily Physical Activity Frequency Comment: walking 50 minutes daily Seatbelt Use: always Sunscreen Use: Yes Assistive Devices: Cane Review of Systems See HPI for pertinent positives & negatives. and A total of 10 systems reviewed and were otherwise negative Physical Exam Vital Signs Vital Signs - 24 hr 06/23/22 15:33 06/23/22 15:38 06/23/22 15:39 Temperature 36.9 C Temperature Source Oral Pulse Rate 85 Pulse Rate [Apical] 84 Respiratory Rate 16 19 Respiratory Effort / Characteristics Non-Labored Spontaneous Non-Labored Spontaneous Respiratory Depth Normal Normal Pulse Oximetry 98 97 Oxygen Delivery Method Room Air Room Air Room Air Sepsis Recent Fever Within 48 Hours No Sepsis New/Unexplained Change in Mental Status No Sepsis Action Taken by Nursing No Action Required VITALS: Vitals are noted on the nurse's note and reviewed by myself. Vital signs stable with heart rate of 85, pulse ox of 99%, blood pressure 148/90, and temp 36.9. GENERAL: 87-year-old female, in no acute distress, non-diaphoretic, well- developed well-nourished. SKIN: Capillary refill <2 sec. No tenting of the skin. HEAD: Normocephalic, atraumatic. EARS: External auditory canals clear, tympanic membranes pearly rizvi without erythema or effusion bilaterally. EYES: PERRLA. EOMI. Conjunctivae without injection, sclerae without icterus. NOSE: Patent without discharge. MOUTH: Mucous membranes moist. Uvula midline. Airway patent. NECK: Supple without nuchal rigidity. HEART: Regular rate and rhythm. Faint grade II/ systolic murmur with split S2. LUNGS: Clear to auscultation bilaterally. A few Rales heard bilaterally without wheezes or rhonchi. No retractions or accessory muscle use. ABDOMEN: Positive bowel sounds x 4. Normal tympanic percussion. Soft, nontender, without masses or organomegaly. Goodwin sign negative. No guarding or rebound tenderness. No focal RLQ or LLQ tenderness. RECTAL EXAM: Permission to perform the exam. Contact Worker present for exam. No external lesions noted. No external hemorrhoids. Normal sphincter tone. Internal hemorrhoids are not enlarged. No masses, tears, fistulas, fissures, abscess, or other lesion noted. Stool is brown and hemoccult positive. MUSCULOSKELETAL: No gross musculoskeletal defects. No tenderness to palpation in the bilateral calves. Peripheral pulses are 2+ and equal. NEURO: Patient was alert and oriented to person place and time. No focal neurological deficits. Course Administered Medications Pantoprazole Sodium 40 mg/ (Syringe) 10 mls @ 5 mls/min IV BID MARCI Stop: 07/23/22 21:33 Last Admin: 06/23/22 22:15 Dose: 5 mls/min Documented By: ASHLEY Meclizine HCl (Meclizine Hcl 25 Mg Tab) 25 mg PO BID MARCI Stop: 07/23/22 21:33 Last Admin: 06/23/22 22:14 Dose: 25 mg Documented By: ASHLEY Discontinued Medications Pantoprazole Sodium 80 mg/ (Dextrose) 100 mls @ 400 mls/hr IV NOW ONE Stop: 06/23/22 16:16 Last Infusion: 06/23/22 17:11 Dose: 0 mls/hr Documented By: Admin: 06/23/22 16:55 Dose: 400 mls/hr Documented By: TIA Ioversol (Ioversol 350 Mg 100ml Prefilled Syringe) 95 ml IV ONCE ONE Stop: 06/23/22 17:27 Last Admin: 06/23/22 17:26 Dose: 95 ml Documented By: JODEE Medical Decision Making Differential Diagnosis Differential diagnosis includes upper GI bleeding, lower GI bleeding, gastritis/duodenitis, duodenal or gastric ulcer, esophageal varices, GAVE, angioectasias, angiodysplastic lesions, AVM, colon polyps, mass/lesion, bleeding of the bladder or urinary tract, or others. Laboratory Data Attestation: I reviewed the patient's lab results. Lab Results 06/23/22 06/23/22 06/23/22 Range/Units 15:40 15:40 16:36 PT 11.4 (9.0-12.0) Seconds INR 1.1 (0.9-1.1) APTT 23.5 (21.0-31.0) Seconds PTT Ratio 0.9 Troponin I High Sens 13.3 (0-14) pg/ml Blood Type B Positive Blood Type Recheck Antibody Screen NEGATIVE Crossmatch See Detail 06/23/22 Range/Units 16:40 PT (9.0-12.0) Seconds INR (0.9-1.1) APTT (21.0-31.0) Seconds PTT Ratio Troponin I High Sens (0-14) pg/ml Blood Type Blood Type Recheck B Positive Antibody Screen Crossmatch Imaging Data Radiologist's Impression: Abdomen/Pelvis CT 06/23/22 16:[address] WITH IV CONTRAST CT DOSE: 372.62 mGycm HISTORY: Acute anemia severe anemia,hemoccult positive TECHNIQUE: Multiaxial CT images of the abdomen and pelvis were performed following the IV administration of 95 cc of Optiray, A dose lowering technique was utilized adhering to the principles of ALARA. COMPARISON STUDY: Lumbar spine radiographs of same day and also 06/05/2020 FINDINGS: Cardiomegaly. Bibasilar atelectasis/scarring. There is no pneumatosis or pneumoperitoneum. Mild right hemidiaphragmatic elevation. The spleen is unremarkable. 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 Mild generalized pancreatic atrophy. Unremarkable adrenal glands and gallbladder. Periportal edema may be related to overhydration. The liver is otherwise unremarkable. There is patency of the hepatic and portal veins. Parenchymal and renal sinus cysts are noted within the left greater than right kidneys. Indeterminate 9 mm slightly hypodense lesion of the superior pole left kidney on image 71. No hydronephrosis. Distended urinary bladder. Uterus and adnexa appear unremarkable. Atherosclerosis of the aorta without aneurysm. There is no lymphadenopathy identified. Mild diffuse wall thickening of the stomach, likely secondary to partial distention. Moderate fecal retention. Colonic diverticulosis. No bowel obstruction or bowel wall thickening. There are numerous stool-filled loops of small bowel within the lower abdomen and pelvis. The appendix is nondilated definitively seen. No secondary signs of acute appendicitis. No ascites or mesenteric inflammation. Degenerative changes of the spine, pelvis and hips. Tiny fat filled periumbilical hernia. Chronic appearing right sacral insufficiency fracture. Healed chronic left pelvic ring fractures. L1 burst fracture with 6 mm retropulsion, progressively worsened from 06/05/2020. 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 IMPRESSION: 1. No bowel obstruction or bowel wall thickening. 2. Colonic diverticulosis without acute diverticulitis. 3. Moderate fecal retention with numerous stool-filled loops of small bowel. 4. Mild diffuse wall thickening of the stomach is likely secondary to partial distention. A nonspecific gastritis could appear similarly. 5. Severe L1 burst fracture with 6 mm retropulsion has progressively worsened from 06/05/2020. 6. Indeterminate 9 mm intermediate density lesion of the superior pole left kidney. Correlation with a nonemergent renal ultrasound recommended. 7. Additional findings as above. ACT 112: Negative or not required by law. The above report was generated using voice recognition software. It may contain grammatical, syntax or spelling errors. Electronically signed by: Jaiden Matthews M.D. 06/23/2022 6:05 PM MDM Narrative I reviewed the patient's medical record including her blood work and x-rays from earlier today as an outpatient. Hemoglobin was 4.7, BUN elevated at 29, and creatinine elevated at 1.29. Platelets and white blood cell count were normal. TSH and LFTs were normal. Chest x-ray as read by radiology without acute abnormalities. I examined the patient. An IV lock was placed and additional labs were drawn. Continuous steel rigger: Order was placed for continuous cardiac and pulse ox monitor. Patient was placed on the steel rigger. Patient was noted to be in normal sinus rhythm at an initial rate of 85 bpm. EKG as interpreted by myself revealed sinus rhythm at 80 bpm with PACs. Troponin negative. Coags normal. COVID negative. Rectal exam revealed brown stool that was heme positive. The patient has not noticed any symptoms of bleeding at home and denies any symptoms other than the shortness of breath. I had a meaningful discussion about this patient with Dr. Hazel. He agrees with my assessment and the treatment plan. Type and cross was obtained and will initially transfuse 1 unit of PRBCs in the ED. Consent obtained by myself for the blood transfusion and consent form was signed. She was given Protonix 80 mg IV. I spoke with the hospitalist who agreed to admit the patient. The patient was in stable condition at the time of transfer of care. Impression & Plan Symptomatic anemia, Heme positive stool Discharge Plan Visit Data Chief Complaint: Shortness of Breath/Dyspnea Stated Complaint: SOB on exertion hgb 4.6 ED Provider: Wayne Hazel ED Midlevel Provider: Aye Lehman Discharge Problem: Symptomatic anemia, Heme positive stool Patient Disposition: Admitted As Inpatient Condition: Good Discharge Instructions Interventions: ED Discharge Assessment Last Done: 06/23/22 21:35
--- NOTE | 2022-06-23 17:16 | History & Physical Report ---
Date of Service June 23, 2022 Assessment & Plan (1) Anemia: Plan: Symptomatic anemia, likely chronic from GI blood loss Hgb 4.7 on arrival down from 13 in 11/2021. Diagnosed with "unprovoked DVT" in 12/2021 and placed on Eliquis at that time No obvious bleeding she has noted except did have some epistaxis in 02/2022 and seen by ENT but none since then Denies abd pain or indigestion, but does admit to 30 lb weight loss over 1-2 years and stomach "soreness" with overeating Hemoccult positive in ER but brown stool noted on rectal exam Last GI scopes many years ago at outside facility -admit to med/surg unit -transfuse total of 4 units PRBCs -check CT abd/pel with IV contrast--> shows mild diffuse thickening of stomach which could be c/w gastritis, but no masses in colon, no lymphadenopathy noted -start Protonix 40mg IV bid -consult GI and keep NPO after midnight for possible EGD tomorrow, may need colonoscopy after that -hold home Eliquis and Celebrex -follow CBC in AM (2) Anticardiolipin antibody syndrome: Plan: had seemingly "unprovoked DVT" in 11/2021 that was quite extensive as per Hematology reports throughout [facility] Had positive anticardiolipin IgM ab but Hematology thinks this may be due to age and not necessarily APS nonetheless, has been on Eliquis x 6 months -hold Eliquis for now due to GIB and anemia as above -SCDs for DVT prvention (3) HLD (hyperlipidemia): Plan: continue statin (4) Osteoporosis: Plan: with vertebral compression fractures worst at L1 f/u as outpatient consider referral to Ortho Spine if has pain but no focal neuro symptoms at this point to suggest cord impingement (5) Osteoarthritis: Plan: hold home Celebrex due to occult GI bleeding tylenol prn pain (6) Vertebral compression fracture: Plan: as above, seen on CT abd/pel L1 severe with 6 mm retropulsion, no focal neuro signs follow as outpt Plan DVT prevention-SCDs only Dispo-admit to med/surg DNR/DNI as discussed with patient. She states her son Yeyo Velázquez would be her decision maker if she is unable to make decisions for herself. History of Present Illness Chief Complaint: SOB, low hemoglobin Primary Care Provider: Demetris Elias MD This pt is an 87 yo female with a h/o back pain and vertebral compression fractures, hyperlipidemia, OA, DVT on Eliquis from anticardiolipin ab syndrome, who has been having increase DIETRICH for the last few weeks. She typically can walk for 45 min at a time but now only 10-15 min before having to stop. She had outpt labs and was advised to come to ER today after hgb came back at 4.7. She denies any hematemesis, hematochezia, melena, epistaxis, hematuria, or vaginal bleeding. No bruising anywhere. Denies abd pain or nausea. She had EGD and colonoscopy in the past but it was many years ago at an outside facility I believe she said was in [place]. She does report s 30 lb weight loss over the last 1-2 years and a sensation of abdominal soreness inher stomach if she overeats. Her vitals were normal in ER. She denies chest pains or lightheadedness, no other symptoms. She was consented and typed and crossed for PRBCs in the ER and will be admitted for severe symptomatic anemia. Allergies Allergy/AdvReac Type Severity Reaction Status Date / Time naproxen Allergy Severe RASH Unverified 06/19/22 15:55 scallops Allergy Severe N/V Unverified 06/19/22 15:55 Home Medications Medication Instructions Recorded Confirmed Type cholecalciferol (vitamin D3) 50 See Rx Instructions PO .COMPLEX 08/31/19 06/23/22 History mcg (2,000 unit) capsule meclizine 25 mg tablet 25 mg PO BID #60 tabs 03/28/20 06/23/22 Rx atorvastatin 10 mg tablet 10 mg PO DAILY #90 tabs 09/15/21 06/23/22 Rx ibandronate 150 mg tablet See Rx Instructions .Route 12/11/21 06/23/22 Rx .COMPLEX ##3 celecoxib 200 mg capsule (Celebrex) 200 mg PO DAILY #90 caps 04/15/22 06/23/22 Rx acetaminophen 325 mg capsule 325 mg PO QID PRN as directed 06/19/22 06/23/22 History (Tylenol) apixaban 5 mg tablet (Eliquis) 5 mg PO BID 06/19/22 06/23/22 History vit C 150 mg-vit E 30 unit-lutein 1 cap PO .Q3W 06/19/22 06/23/22 History 5 bj-sbaaslzw-yganx 3 150 mg capsule (Ocuvite) Past Med/Surg History Medical History Abnormal mammogram Anemia Anticardiolipin antibody syndrome Carotid artery plaque Coccyx pain Deep vein thrombosis, lower right extremity Fibrocystic breast disease History of cardiac murmur HLD (hyperlipidemia) Osteoarthritis Osteoporosis Sacroiliitis Surgical History Bunion Family History Family/Other No problems noted. Other Adopted Social History Smoking Status: Former smoker Hx Alcohol Use: Yes Hx Substance Use: No Preferred Language: Taiwanese Communication Ability: Effective marital status: / Current Living Situation: Alone current occupational status: retired Feels Safe at Home: Yes Childhood Exposure to Second-Hand Smoke: Yes caffeine: Yes Dental Care, Regularly: Yes Physical Activity Frequency: Daily Physical Activity Frequency Comment: walking 50 minutes daily Seatbelt Use: always Sunscreen Use: Yes Review of Systems Review of Systems: All systems reviewed & are unremarkable except as noted in HPI & below Physical Exam Constitutional: WD/WN, vitals as above Eyes: PERRL, conjunctivae normal, anicteric sclerae ENMT: external ear and nose normal, oropharynx normal Neck: trachea midline, no thyromegaly Respiratory: normal respiratory effort, lungs clear to auscultation Cardiovascular: RRR, no murmur, no edema Chest (Breasts): Chest: normal inspection of chest Gastrointestinal (Abdomen): normal bowel sounds, soft, nontender, no hepatosplenomegaly Musculoskeletal: Extremities: extremities normal to inspection; no cyanosis and no clubbing Skin: no rashes, warm and dry Neurologic: moves all extremities and awake; no focal motor deficits Psychiatric: A+Ox3, euthymic affect Lymphatic: no lymphedema Results & Data Results & Data ([facility]) Vital Signs (Past 12 Hours) Vital Signs Temp Pulse Pulse Resp Pulse Ox O2 Del Method 06/23/22 15:39 84 19 97 Room Air 06/23/22 15:38 Room Air 06/23/22 15:33 36.9 C 85 16 98 Room Air Laboratory Results 06/23/22 06/23/22 06/23/22 Range/Units 17:17 16:40 16:36 PT (9.0-12.0) Seconds INR (0.9-1.1) APTT (21.0-31.0) Seconds PTT Ratio Troponin I High Sens (0-14) pg/ml SARS-CoV-2, RNA, NAAT NEGATIVE (NEGATIVE) Blood Type B Positive Blood Type Recheck B Positive Antibody Screen NEGATIVE Crossmatch See Detail 06/23/22 06/23/22 Range/Units 15:40 15:40 PT 11.4 (9.0-12.0) Seconds INR 1.1 (0.9-1.1) APTT 23.5 (21.0-31.0) Seconds PTT Ratio 0.9 Troponin I High Sens 13.3 (0-14) pg/ml SARS-CoV-2, RNA, NAAT (NEGATIVE) Blood Type Blood Type Recheck Antibody Screen Crossmatch Diagnostic Findings Abdomen/Pelvis CT 06/23/22 16:[address] WITH IV CONTRAST CT DOSE: 372.62 mGycm HISTORY: Acute anemia severe anemia,hemoccult positive TECHNIQUE: Multiaxial CT images of the abdomen and pelvis were performed following the IV administration of 95 cc of Optiray, A dose lowering technique was utilized adhering to the principles of ALARA. COMPARISON STUDY: Lumbar spine radiographs of same day and also 06/05/2020 FINDINGS: Cardiomegaly. Bibasilar atelectasis/scarring. There is no pneumatosis or pneumoperitoneum. Mild right hemidiaphragmatic elevation. The spleen is unremarkable. 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 Mild generalized pancreatic atrophy. Unremarkable adrenal glands and gallbladder. Periportal edema may be related to overhydration. The liver is otherwise unremarkable. There is patency of the hepatic and portal veins. Parenchymal and renal sinus cysts are noted within the left greater than right kidneys. Indeterminate 9 mm slightly hypodense lesion of the superior pole left kidney on image 71. No hydronephrosis. Distended urinary bladder. Uterus and adnexa appear unremarkable. Atherosclerosis of the aorta without aneurysm. There is no lymphadenopathy identified. Mild diffuse wall thickening of the stomach, likely secondary to partial distention. Moderate fecal retention. Colonic diverticulosis. No bowel obstruction or bowel wall thickening. There are numerous stool-filled loops of small bowel within the lower abdomen and pelvis. The appendix is nondilated definitively seen. No secondary signs of acute appendicitis. No ascites or mesenteric inflammation. Degenerative changes of the spine, pelvis and hips. Tiny fat filled periumbilical hernia. Chronic appearing right sacral insufficiency fracture. Healed chronic left pelvic ring fractures. L1 burst fracture with 6 mm retropulsion, progressively worsened from 06/05/2020. 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 IMPRESSION: 1. No bowel obstruction or bowel wall thickening. 2. Colonic diverticulosis without acute diverticulitis. 3. Moderate fecal retention with numerous stool-filled loops of small bowel. 4. Mild diffuse wall thickening of the stomach is likely secondary to partial distention. A nonspecific gastritis could appear similarly. 5. Severe L1 burst fracture with 6 mm retropulsion has progressively worsened from 06/05/2020. 6. Indeterminate 9 mm intermediate density lesion of the superior pole left kidney. Correlation with a nonemergent renal ultrasound recommended. 7. Additional findings as above. ACT 112: Negative or not required by law. The above report was generated using voice recognition software. It may contain grammatical, syntax or spelling errors. Electronically signed by: Jaiden Matthews M.D. 06/23/2022 6:05 PM Code Status & VTE Plan Code Status DNR/DNI VTE Prophylaxis Plan VTE Prophylaxis will be ordered: Yes PG Care Time/CCT Total # of Minutes Spent Total Time Spent with Patient: Total time spent is greater than 50% in coordination of care (as documented) at patient's floor/unit and/or counseling patient: Coding Level of Care Code 04663 Initial Inpt Care Lvl 3 Diagnoses Anemia D64.9 Anticardiolipin antibody syndrome D68.61 HLD (hyperlipidemia) E78.5 Osteoporosis M81.0 Osteoarthritis M19.90 Vertebral compression fracture M48.50XA
[2022-06-23] MEDS ORDERED: IOVERSOL 350 MG 100mL Prefilled Syringe IV ONE (17:26)
--- NOTE | 2022-06-23 18:06 | CT Scan Report ---
ABDOMEN AND PELVIS CT WITH IV CONTRAST CT DOSE: 372.62 mGycm HISTORY: Acute anemia severe anemia,hemoccult positive TECHNIQUE: Multiaxial CT images of the abdomen and pelvis were performed following the IV administrat ion of 95 cc of Optiray, A dose lowering technique was utilized adhering to the principles of ALARA. COMPARISON STUDY: Lumbar spine radiographs of same day and also 06/05/2020 FINDINGS: Cardiomegaly. Bibasilar atelectasis/scarring. There is no pneumatosis or pneumoperitoneum. Mild right hemidiaphragmatic elevation. The spleen is unremarkable. 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 Mild generalized pancreatic atrophy. Unremarkable adrenal glands and gallbladder. Periporta l edema may be related to overhydration. The liver is otherwise unremarkable. There is patency of the hepatic and portal veins. Parenchymal and renal sinus cysts are noted within the left greater than right kidneys. Indeterminate 9 mm slightly hypodense lesion of the superior pole left kidney on image 71. No hydronephrosis. Dist ended urinary bladder. Uterus and adnexa appear unremarkable. Atherosclerosis of the aorta without an eurysm. There is no lymphadenopathy identified. Mild diffuse wall thickening of the stomach, likely secondary to partial distention. Moderate fecal r etention. Colonic diverticulosis. No bowel obstruction or bowel wall thickening. There are numerous s tool-filled loops of small bowel within the lower abdomen and pelvis. The appendix is nondilated defi nitively seen. No secondary signs of acute appendicitis. No ascites or mesenteric inflammation. Degen erative changes of the spine, pelvis and hips. Tiny fat filled periumbilical hernia. Chronic appearin g right sacral insufficiency fracture. Healed chronic left pelvic ring fractures. L1 burst fracture w ith 6 mm retropulsion, progressively worsened from 06/05/2020. 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 IMPRESSION: 1. No bowel obstruction or bowel wall thickening. 2. Colonic diverticulosis without acute diverticulitis. 3. Moderate fecal retention with numerous stool-filled loops of small bowel. 4. Mild diffuse wall thickening of the stomach is likely secondary to partial distention. A nonspecif ic gastritis could appear similarly. 5. Severe L1 burst fracture with 6 mm retropulsion has progressively worsened from 06/05/2020. 6. Indeterminate 9 mm intermediate density lesion of the superior pole left kidney. Correlation with a nonemergent renal ultrasound recommended. 7. Additional findings as above. ACT 112: Negative or not required by law. The above report was generated using voice recognition software. It may contain grammatical, syntax o r spelling errors. Electronically signed by: Jaiden Matthews M.D. 06/23/2022 6:05 PM
--- NOTE | 2022-06-23 18:13 | Emergency Department Note ---
ED Visit Note I was consulted by the Advanced Practice Provider. I saw the patient personally and performed a substantive portion of the visit. This includes aspects of the HPI, MDM, diagnostic interpretations, and disposition/plan. Patient presents for shortness of breath that is worse with exertion. She had outpatient blood work that showed a hemoglobin around 4. The patient will be admitted for further evaluation and care. She does have guaiac positive stools. .
[2022-06-23] MEDS ORDERED: ONDANSETRON INJ 2 MG/ML 2 ML VIAL IV PRN (21:34)
[2022-06-23] MEDS ORDERED: POLYETHYLENE (MIRALAX) 17 GM PACK PO PRN (21:34)
[2022-06-23] MEDS: MECLIZINE HCL 25 MG TAB PO SCH (22:14)
[2022-06-23] MEDS: PANTOprazole 40 MG in SYRINGE 0 ML IV SCH (22:15)
[2022-06-23] MEDS ORDERED: STAT IV STA (23:48)
[2022-06-23] MEDS ORDERED: CALCIUM GLUCONATE 10% 1,000 MG in DEXTROSE 5% 50 ML IV ONE (23:50)
[2022-06-24] MEDS ORDERED: CALCIUM GLUCONATE 10% 1,000 MG in DEXTROSE 5% 50 ML IV SCH (00:30)
--- NOTE | 2022-06-24 06:23 | Electrocardiogram Report ---
Test Reason : Blood Pressure : / mmHG Vent. Rate : 080 BPM Atrial Rate : 080 BPM P-R Int : 132 ms QRS Dur : 062 ms QT Int : 376 ms P-R-T Axes : 058 -19 026 degrees QTc Int : 433 ms Sinus rhythm with Premature atrial complexes Otherwise normal ECG When compared with ECG of 13-OCT-2018 14:44, Premature atrial complexes are now Present Confirmed by Josue Galindo ([id number]) on 06/24/2022 6:23:20 AM Referred By: Confirmed By:Josue Galindo
--- NOTE | 2022-06-24 06:44 | Communication Note ---
Date of Service: June 24, 2022 Visited patient early this morning to assess fluid status given number of transfusions she has required. She was resting comfortably with a relaxed breathing pattern. She denied any complaints or shortness of breath. Normal RR, SpO2 >97% on RA, HR 55 Cardiac - NRRR, +S1/2 w/o m/r/g Respiratory - Generally CTAB w/ fine crackles at the R base Neck - no JVD No respiratory distress but some crackles at R base Check CXR, can consider gentle diuresis vs. monitoring Await AM labs including BMP No h/o HF
--- NOTE | 2022-06-24 07:51 | XRay Report ---
XR chest 1V portable CLINICAL HISTORY: assess for fluid overload COMPARISON STUDY: Chest radiograph June 23, 2022. FINDINGS: No pneumothorax or pleural effusion is identified. There has been interval development of i nterstitial pulmonary edema. Cardiomediastinal silhouette is stable. No consolidation is identified. IMPRESSION: Interval development of interstitial pulmonary edema. ACT 112: Negative or not required by law. Electronically signed by: Troy Salas M.D. 06/24/2022 7:50 AM
[2022-06-24] MEDS: MECLIZINE HCL 25 MG TAB PO SCH ×2 (08:25→22:39)
[2022-06-24] MEDS: ATORVASTATIN 10 MG TAB PO SCH (08:25)
[2022-06-24] MEDS: PANTOprazole 40 MG in SYRINGE 0 ML IV SCH ×2 (11:59→21:57)
--- NOTE | 2022-06-24 13:06 | Gastrointestinal Consultation ---
Date of Consultation June 24, 2022 Assessment & Plan (1) Symptomatic anemia: She has anemia without obvious source. She does report a 30 pound weight loss. With her history of celebrex usage I do suggest EGD. Would consider colonoscopy if EGD is negative but that could be done as an outpatient. Since she took eliquis yesterday I will delay procedure until tomorrow Present on Admission?: Yes History of Present Illness Reason for Consultation: anemia Attending Physician: Renan Campuzano History of Present Illness 87 year old female admitted with profound anemia. She tells me she was feeling weak and short of breath. She has no GI complaints. She has not had any dark stools. She has not seen blood in her bowel movements. She has no abdominal pain, nor heartburn or indigestion. Her bowel movements are good. Her last colonoscopy she says was more than five years ago. She is on eliquis and she does take celebrex. Allergies Allergy/AdvReac Type Severity Reaction Status Date / Time naproxen Allergy Severe RASH Unverified 06/19/22 15:55 scallops Allergy Severe N/V Unverified 06/19/22 15:55 Home Medications Medication Instructions Recorded Confirmed Type cholecalciferol (vitamin D3) 50 See Rx Instructions PO .COMPLEX 08/31/19 06/23/22 History mcg (2,000 unit) capsule meclizine 25 mg tablet 25 mg PO BID #60 tabs 03/28/20 06/23/22 Rx atorvastatin 10 mg tablet 10 mg PO DAILY #90 tabs 09/15/21 06/23/22 Rx ibandronate 150 mg tablet See Rx Instructions .Route 12/11/21 06/23/22 Rx .COMPLEX ##3 celecoxib 200 mg capsule (Celebrex) 200 mg PO DAILY #90 caps 04/15/22 06/23/22 Rx acetaminophen 325 mg capsule 325 mg PO QID PRN as directed 06/19/22 06/23/22 History (Tylenol) apixaban 5 mg tablet (Eliquis) 5 mg PO BID 06/19/22 06/23/22 History vit C 150 mg-vit E 30 unit-lutein 1 cap PO .Q3W 06/19/22 06/23/22 History 5 [id number] 3 150 mg capsule (Ocuvite) Patient History Medical History Abnormal mammogram Anemia Anticardiolipin antibody syndrome Carotid artery plaque Coccyx pain Deep vein thrombosis, lower right extremity Fibrocystic breast disease History of cardiac murmur HLD (hyperlipidemia) Osteoarthritis Osteoporosis Sacroiliitis Surgical History Bunion Family History Family/Other No problems noted. Other Adopted Social History Smoking Status: Never smoker Second Hand Exposure: No; Tobacco Cessation Education Requested by Patient: No Hx Alcohol Use: Yes Alcohol type: wine Hx Substance Use: No Preferred Language: Mongolian Communication Ability: Effective Facilities Supervisor Required: No Beliefs That Will Affect Care: None marital status: / Current Living Situation: Personal Care Facility Current Living Situation Comment: lives at [facility] in assist living current occupational status: retired Other Information That Helps Us Care for You: No Feels Safe at Home: Yes Safety Concerns: Feels Safe At This Time Childhood Exposure to Second-Hand Smoke: Yes caffeine: Yes Dental Care, Regularly: Yes Physical Activity Frequency: Daily Physical Activity Frequency Comment: walking 50 minutes daily Seatbelt Use: always Sunscreen Use: Yes Assistive Devices: None Review of Systems Review of Systems: All systems reviewed & are unremarkable except as noted in HPI & below Physical Exam Constitutional: WD/WN, vitals as above no acute distress Eyes: PERRL, conjunctivae normal, anicteric sclerae ENMT: external ear and nose normal, oropharynx normal Neck: trachea midline, no thyromegaly Respiratory: normal respiratory effort, lungs clear to auscultation Cardiovascular: RRR, no murmur, no edema Gastrointestinal (Abdomen): normal bowel sounds, soft, nontender, no hepatosplenomegaly Musculoskeletal: Extremities: no cyanosis and no clubbing Skin: no rashes, warm and dry Neurologic: PERRL, EOMI, accommodation nl, no face palsy, no dysarthria Psychiatric: Orientation: alert and oriented x 3 Results & Data ([facility]) Vital Signs (Past 12 Hours) Vital Signs Temp Pulse Pulse Resp BP BP Pulse Ox 06/24/22 12:48 66 16 135/81 95 06/24/22 11:58 37.0 C 66 16 149/86 H 94 06/24/22 11:20 36.9 C 69 22 125/75 95 06/24/22 10:20 37.0 C 67 20 129/80 96 06/24/22 09:20 36.9 C 72 22 138/87 95 06/24/22 08:50 36.9 C 73 19 138/87 98 06/24/22 08:35 36.8 C 71 20 138/88 97 06/24/22 08:19 37 C 67 16 146/83 H 96 06/24/22 08:16 37.0 C 73 24 146/83 H 95 06/24/22 07:50 62 19 134/89 96 06/24/22 06:47 36.8 C 60 16 131/79 97 06/24/22 05:55 36.6 C 55 L 19 112/65 97 06/24/22 04:55 37.0 C 60 16 116/75 95 06/24/22 04:25 37.0 C 59 L 16 124/68 95 06/24/22 04:10 37.0 C 61 16 125/79 96 06/24/22 03:55 36.9 C 69 15 124/68 95 06/24/22 01:26 36.9 C 84 19 118/76 95 O2 Del Method 06/24/22 12:48 Room Air 06/24/22 11:58 06/24/22 11:20 06/24/22 10:20 06/24/22 09:20 06/24/22 08:50 06/24/22 08:35 06/24/22 08:19 06/24/22 08:16 06/24/22 07:50 Room Air 06/24/22 06:47 06/24/22 05:55 06/24/22 04:55 06/24/22 04:25 06/24/22 04:10 06/24/22 03:55 06/24/22 01:26 Laboratory Results 06/24/22 06/24/22 06/23/22 Range/Units 12:43 12:43 17:55 WBC Pending RBC Pending Hgb Pending Hct Pending MCV Pending MCH Pending MCHC Pending Plt Count Pending PT (9.0-12.0) Seconds INR (0.9-1.1) APTT (21.0-31.0) Seconds PTT Ratio Sodium Pending Potassium Pending Chloride Pending Carbon Dioxide Pending Anion Gap Pending BUN Pending Creatinine Pending Est Cr Clr Drug Dosing Pending Est GFR ( Amer) Pending Est GFR (Non-Af Amer) Pending BUN/Creatinine Ratio Pending Glucose Pending Calcium Pending Magnesium Pending Troponin I High Sens (0-14) pg/ml POC Stool Occult Blood Positive A (Negative) SARS-CoV-2, RNA, NAAT (NEGATIVE) Blood Type Blood Type Recheck Antibody Screen Crossmatch 06/23/22 06/23/22 06/23/22 Range/Units 17:17 16:40 16:36 WBC RBC Hgb Hct MCV MCH MCHC Plt Count PT (9.0-12.0) Seconds INR (0.9-1.1) APTT (21.0-31.0) Seconds PTT Ratio Sodium Potassium Chloride Carbon Dioxide Anion Gap BUN Creatinine Est Cr Clr Drug Dosing Est GFR ( Amer) Est GFR (Non-Af Amer) BUN/Creatinine Ratio Glucose Calcium Magnesium Troponin I High Sens (0-14) pg/ml POC Stool Occult Blood (Negative) SARS-CoV-2, RNA, NAAT NEGATIVE (NEGATIVE) Blood Type B Positive Blood Type Recheck B Positive Antibody Screen NEGATIVE Crossmatch See Detail 06/23/22 06/23/22 Range/Units 15:40 15:40 WBC RBC Hgb Hct MCV MCH MCHC Plt Count PT 11.4 (9.0-12.0) Seconds INR 1.1 (0.9-1.1) APTT 23.5 (21.0-31.0) Seconds PTT Ratio 0.9 Sodium Potassium Chloride Carbon Dioxide Anion Gap BUN Creatinine Est Cr Clr Drug Dosing Est GFR ( Amer) Est GFR (Non-Af Amer) BUN/Creatinine Ratio Glucose Calcium Magnesium Troponin I High Sens 13.3 (0-14) pg/ml POC Stool Occult Blood (Negative) SARS-CoV-2, RNA, NAAT (NEGATIVE) Blood Type Blood Type Recheck Antibody Screen Crossmatch
[2022-06-24 13:14] LABS: Basophils # (auto) 0.03 K/uL (0-0.2); Basophils % (auto) 0.5 %; Eosinophils # (auto) 0.13 K/uL (0-0.50); Hematocrit (blood only) 30.8 % (34.1-44.9); Hemoglobin 10.4 g/dl (12.0-16.0); Immature Granulocytes # (auto) 0.03 K/uL (0.00-0.02); Immature Granulocytes % (auto) 0.5 %; Lymphocytes # (auto) 1.24 K/uL (1.2-3.4); Lymphocytes % (auto) 18.6 %; Mean Corpuscular Hemoglobin 26.9 pg (25.0-34.0); Mean Corpuscular Hgb Conc 33.8 g/dL (32.0-36.0); Mean Corpuscular Volume 79.6 fL (80.0-100.0); Mean Platelet Volume 11.3 fL (9.4-12.3); Monocytes # (auto) 0.81 K/uL (0.24-0.82); Monocytes % (auto) 12.2 %; Neutrophils # (auto) 4.41 K/uL (1.4-6.5); Neutrophils % (auto) 66.2 %; Nucleated RBC # (auto) 0.02 K/uL (0-0); Nucleated RBC % (auto) 0.3 %; Platelet Count 160 K/uL (130-400); RDW Coefficient of Variation 17.5 % (11.5-14.5); Red Blood Count 3.87 M/uL (3.93-5.22); White Blood Count 6.65 K/ul (4.8-10.8)
[2022-06-24 13:42] LABS: BUN Creatinine Ratio 18.4 (10-20); Calcium 8.9 mg/dl (8.5-10.1); Creatinine Clr Calc Pharmacy 31.1 ml/min; Est GFR (African American) 60.5 ml/min; Est GFR (Non-African American) 52.2 ml/min; Magnesium 2.3 mg/dl (1.7-2.4)
--- NOTE | 2022-06-24 14:40 | Hospitalist Progress Note ---
Date of Service June 24, 2022 Assessment & Plan (1) Anemia: Plan: Symptomatic anemia, likely chronic from GI blood loss Hgb 4.7 on arrival down from 13 in 11/2021. Diagnosed with "unprovoked DVT" in 12/2021 and placed on Eliquis at that time No obvious bleeding she has noted except did have some epistaxis in 02/2022 and seen by ENT but none since then Denies abd pain or indigestion, but does admit to 30 lb weight loss over 1-2 years and stomach "soreness" with overeating Hemoccult positive in ER but brown stool noted on rectal exam Last GI scopes many years ago at outside facility -admit to med/surg unit -transfuse total of 4 units PRBCs -check CT abd/pel with IV contrast--> shows mild diffuse thickening of stomach which could be c/w gastritis, but no masses in colon, no lymphadenopathy noted -start Protonix 40mg IV bid -consulted GI, plans to do EGD on 06/25, will advance diet to clears and make NPO after MN -hold home Eliquis and Celebrex -follow H&H - following transfusion, hgb up to 10.4 (2) Anticardiolipin antibody syndrome: Plan: had seemingly "unprovoked DVT" in 11/2021 that was quite extensive as per Hematology reports throughout [facility] Had positive anticardiolipin IgM ab but Hematology thinks this may be due to age and not necessarily APS nonetheless, has been on Eliquis x 6 months -hold Eliquis for now due to GIB and anemia as above -SCDs for DVT prevention (3) HLD (hyperlipidemia): Plan: -continue statin (4) Osteoporosis: Plan: with vertebral compression fractures worst at L1 f/u as outpatient -consider referral to Ortho Spine if has pain but no focal neuro symptoms at this point to suggest cord impingement (5) Osteoarthritis: Plan: hold home Celebrex due to occult GI bleeding -tylenol prn pain (6) Vertebral compression fracture: Plan: as above, seen on CT abd/pel L1 severe with 6 mm retropulsion, no focal neuro signs follow as outpt Plan As above, trend H&H. Updated patient and son at bedside. Reviewed GI consult, appreciate assistance. Await EGD procedure tomorrow and further plan will be outlined pending those results. Plan d/w Dr. Campuzano. Admission and Anticipated Discharge Date Admission Date: June 23, 2022 Subjective Patient seen on daily rounds this morning. She reports admitted due to shortness of breath and was found to be profoundly anemic with a hgb of 4.7. She presently denies feeling short of breath but has only been laying in bed. She denies cp or palpitations, dizziness/lightheadedness. Review of Systems Review of Systems: All systems reviewed and are unremarkable except as noted in HPI and below. Denies fever, chills, fatigue, headache, nasal congestion, sore throat, cough, chest pain, shortness of breath, palpitations, orthopnea, PND, abdominal pain, n/v/d, constipation, dysuria, hematuria, frequency, back pain, joint pain or swelling, easy bruising or bleeding, skin lesions or rashes. Physical Exam Physical Exam: GENERAL: 87 yo Well-developed, well-nourished elderly WF. NAD. LUNGS: Clear to auscultation bilaterally. No W/R/R. CARDIOVASCULAR: Regular rate and rhythm. ABDOMEN: Soft, non-tender and non-distended. BS normoactive x 4 quad. EXTREMITIES: No edema. Non-tender. Peripheral pulses +2/4. NEUROLOGIC: A&O x3. Nonfocal PSYCHIATRIC: Cooperative. Appropriate mood and affect. SKIN: Warm, dry, intact. No rashes or lesions. Results & Data Results & Data ([facility]) Vital Signs (Past 12 Hours) Vital Signs Temp Pulse Pulse Resp BP BP Pulse Ox 06/24/22 12:48 66 16 135/81 95 06/24/22 11:58 37.0 C 66 16 149/86 H 94 06/24/22 11:20 36.9 C 69 22 125/75 95 06/24/22 10:20 37.0 C 67 20 129/80 96 06/24/22 09:20 36.9 C 72 22 138/87 95 06/24/22 08:50 36.9 C 73 19 138/87 98 06/24/22 08:35 36.8 C 71 20 138/88 97 06/24/22 08:19 37 C 67 16 146/83 H 96 06/24/22 08:16 37.0 C 73 24 146/83 H 95 06/24/22 07:50 62 19 134/89 96 06/24/22 06:47 36.8 C 60 16 131/79 97 06/24/22 05:55 36.6 C 55 L 19 112/65 97 06/24/22 04:55 37.0 C 60 16 116/75 95 06/24/22 04:25 37.0 C 59 L 16 124/68 95 06/24/22 04:10 37.0 C 61 16 125/79 96 06/24/22 03:55 36.9 C 69 15 124/68 95 O2 Del Method 06/24/22 12:48 Room Air 06/24/22 11:58 06/24/22 11:20 06/24/22 10:20 06/24/22 09:20 06/24/22 08:50 06/24/22 08:35 06/24/22 08:19 06/24/22 08:16 06/24/22 07:50 Room Air 06/24/22 06:47 06/24/22 05:55 06/24/22 04:55 06/24/22 04:25 06/24/22 04:10 06/24/22 03:55 Laboratory Results 06/24/22 12:43 06/24/22 12:43 PG Care Time/CCT Total # of Minutes Spent Total Time Spent with Patient: Total time spent is greater than 50% in coordination of care (as documented) at patient's floor/unit and/or counseling patient: Coding Level of Care Code 61041 Subseq Hosp Care Lvl 2 Diagnoses Anemia D64.9 Anticardiolipin antibody syndrome D68.61 HLD (hyperlipidemia) E78.5 Osteoporosis M81.0 Osteoarthritis M19.90 Vertebral compression fracture M48.50XA
[2022-06-24 17:58] LABS: Hematocrit (blood only) 32.4 % (34.1-44.9); Hemoglobin 10.8 g/dl (12.0-16.0)
[2022-06-24] MEDS: ACETAMINOPHEN 325 MG TAB PO PRN (19:40)
[2022-06-24] MEDS ORDERED: MELATONIN 3 MG TAB PO PRN (20:35)
[2022-06-25] MEDS: ACETAMINOPHEN 325 MG TAB PO PRN ×3 (06:12→20:24)
[2022-06-25 08:13] LABS: Hematocrit (blood only) 33.3 % (34.1-44.9); Hemoglobin 11.2 g/dl (12.0-16.0); Mean Corpuscular Hemoglobin 27.5 pg (25.0-34.0); Mean Corpuscular Hgb Conc 33.6 g/dL (32.0-36.0); Mean Corpuscular Volume 81.8 fL (80.0-100.0); Mean Platelet Volume 11.5 fL (9.4-12.3); Platelet Count 165 K/uL (130-400); RDW Coefficient of Variation 17.4 % (11.5-14.5); RDW Standard Deviation 51.4 fL (36.4-46.3); Red Blood Count 4.07 M/uL (3.93-5.22); White Blood Count 6.65 K/ul (4.8-10.8)
[2022-06-25] MEDS: MECLIZINE HCL 25 MG TAB PO SCH ×2 (08:25→20:25)
[2022-06-25] MEDS: PANTOprazole 40 MG in SYRINGE 0 ML IV SCH ×2 (08:25→20:25)
[2022-06-25] MEDS: ATORVASTATIN 10 MG TAB PO SCH (08:25)
[2022-06-25 08:38] LABS: BUN Creatinine Ratio 14.3 (10-20); Calcium 8.8 mg/dl (8.5-10.1); Creatinine Clr Calc Pharmacy 31.1 ml/min; Est GFR (African American) 60.5 ml/min; Est GFR (Non-African American) 52.2 ml/min; Potassium 3.7 mmol/L (3.5-5.1)
--- NOTE | 2022-06-25 10:55 | Anesthesiology Consultation ---
Date of Service June 25, 2022 Assessment & Plan (1) Encounter for pre-operative examination: Chart Review Chart Review: Acceptable Risk for Surgery, Patient NOT seen in Pre Admission Testing and jewel hole finish opener initiated Consults Requested none History Surgery Operation Date: 06/25/22 16:30 Proposed Procedures p Esophagogastroduodenoscopy Dr. Amanuel Vital Jr, MD Height/Weight Height: 5 ft 1 in Weight: 55 kg Allergies Allergy/AdvReac Type Severity Reaction Status Date / Time naproxen Allergy Severe RASH Unverified 06/19/22 15:55 scallops Allergy Severe N/V Unverified 06/19/22 15:55 Medications Home Medications Medication Instructions Recorded Confirmed Last Taken cholecalciferol (vitamin D3) 50 See Rx Instructions PO .COMPLEX 08/31/19 06/23/22 Unknown mcg (2,000 unit) capsule meclizine 25 mg tablet 25 mg PO BID #60 tabs 03/28/20 06/23/22 Unknown atorvastatin 10 mg tablet 10 mg PO DAILY #90 tabs 09/15/21 06/23/22 Unknown ibandronate 150 mg tablet See Rx Instructions .Route 12/11/21 06/23/22 Unknown .COMPLEX ##3 celecoxib 200 mg capsule (Celebrex) 200 mg PO DAILY #90 caps 04/15/22 06/23/22 Unknown acetaminophen 325 mg capsule 325 mg PO QID PRN as directed 06/19/22 06/23/22 Unknown (Tylenol) apixaban 5 mg tablet (Eliquis) 5 mg PO BID 06/19/22 06/23/22 Unknown vit C 150 mg-vit E 30 unit-lutein 1 cap PO .Q3W 06/19/22 06/23/22 Unknown 5 gm-[id number]-hwiyy 3 150 mg capsule (Ocuvite) Active Medications Generic Name Dose Route Start Last Admin Trade Name Freq PRN Reason Stop Dose Admin Acetaminophen 325 mg 06/23/22 21:38 06/25/22 06:12 Acetaminophen 325 Mg Tab PO 07/23/22 21:37 325 mg QID PRN Administration pain Atorvastatin Calcium 10 mg 06/24/22 09:00 06/25/22 08:25 Atorvastatin 10 Mg Tab PO 07/24/22 08:59 10 mg DAILY MARCI Administration Pantoprazole Sodium 40 mg/ 10 mls @ 5 mls/min 06/23/22 21:34 06/25/22 08:25 Syringe IV 07/23/22 21:33 5 mls/min BID MARCI Administration Meclizine HCl 25 mg 06/23/22 21:34 06/25/22 08:25 Meclizine Hcl 25 Mg Tab PO 07/23/22 21:33 25 mg BID MARCI Administration Melatonin 3 mg 06/24/22 20:35 06/24/22 21:53 Melatonin 3 Mg Tab PO 07/24/22 20:34 3 mg HS PRN Administration Sleep NPO Date Last Intake of Fluids: 06/24/22 Time Last Intake of Fluids: 23:59 Date Last Intake of Solids: 06/24/22 Time Last Intake of Solids: 23:59 Past Medical History Medical History (Updated 06/25/22 @ 10:57 by Edmond Lamb MD) Abnormal mammogram Anemia Anticardiolipin antibody syndrome Carotid artery plaque Coccyx pain Deep vein thrombosis, lower right extremity Encounter for pre-operative examination Fibrocystic breast disease History of cardiac murmur HLD (hyperlipidemia) Osteoarthritis Osteoporosis Sacroiliitis Past Family History Family History Family/Other No problems noted. Other Adopted Past Surgical History Surgical History Bunion Social History Smoking Status: Never smoker Hx Alcohol Use: Yes Alcohol type: wine alcohol intake frequency: holidays/special occasions only Hx Substance Use: No substance use type: does not use Physical Exam Vital Signs Last Vital Signs Temp 36.8 C 06/25/22 08:37 Pulse 71 06/25/22 08:37 Resp 16 06/25/22 08:37 BP 135/74 06/25/22 08:37 Pulse Ox 95 06/25/22 08:37 O2 Del Method 06/25/22 08:37 Testing Laboratory Results 06/25/22 07:51 06/25/22 07:51 PT 11.4 Seconds (9.0-12.0) 06/23/22 15:40 INR 1.1 (0.9-1.1) 06/23/22 15:40 APTT 23.5 Seconds (21.0-31.0) 06/23/22 15:40 Blood Type B Positive 06/23/22 16:36 Antibody Screen NEGATIVE 06/23/22 16:36 Electrocardiogram Date: 06/23/22 Test Reason : Blood Pressure : / mmHG Vent. Rate : 080 BPM Atrial Rate : 080 BPM P-R Int : 132 ms QRS Dur : 062 ms QT Int : 376 ms P-R-T Axes : 058 -19 026 degrees QTc Int : 433 ms Sinus rhythm with Premature atrial complexes Otherwise normal ECG When compared with ECG of 13-OCT-2018 14:44, Premature atrial complexes are now Present Confirmed by Josue Galindo ([id number]) on 06/24/2022 6:23:20 AM Chest X-Ray Date: 06/24/22 XR chest 1V portable CLINICAL HISTORY: assess for fluid overload COMPARISON STUDY: Chest radiograph June 23, 2022. FINDINGS: No pneumothorax or pleural effusion is identified. There has been interval development of interstitial pulmonary edema. Cardiomediastinal silhouette is stable. No consolidation is identified. IMPRESSION: Interval development of interstitial pulmonary edema.
--- NOTE | 2022-06-25 15:54 | History & Physical Report ---
Date of Service June 25, 2022 Assessment & Plan (1) Symptomatic anemia: Plan: Ready for EGD. Procedure and risks discussed with patient and she agrees Admission and Anticipated Discharge Date Admission Date: June 23, 2022 History of Present Illness Chief Complaint: anemia Primary Care Provider: Demetris Elias MD Feeling well ready for procedure Allergies Allergy/AdvReac Type Severity Reaction Status Date / Time naproxen Allergy Severe RASH Unverified 06/19/22 15:55 scallops Allergy Severe N/V Unverified 06/19/22 15:55 Home Medications Medication Instructions Recorded Confirmed Type cholecalciferol (vitamin D3) 50 See Rx Instructions PO .COMPLEX 08/31/19 06/23/22 History mcg (2,000 unit) capsule meclizine 25 mg tablet 25 mg PO BID #60 tabs 03/28/20 06/23/22 Rx atorvastatin 10 mg tablet 10 mg PO DAILY #90 tabs 09/15/21 06/23/22 Rx ibandronate 150 mg tablet See Rx Instructions .Route 12/11/21 06/23/22 Rx .COMPLEX ##3 celecoxib 200 mg capsule (Celebrex) 200 mg PO DAILY #90 caps 04/15/22 06/23/22 Rx acetaminophen 325 mg capsule 325 mg PO QID PRN as directed 06/19/22 06/23/22 History (Tylenol) apixaban 5 mg tablet (Eliquis) 5 mg PO BID 06/19/22 06/23/22 History vit C 150 mg-vit E 30 unit-lutein 1 cap PO .Q3W 06/19/22 06/23/22 History 5 [id number] 3 150 mg capsule (Ocuvite) Past Med/Surg History Medical History (Updated 06/25/22 @ 10:57 by Edmond Lamb MD) Abnormal mammogram Anemia Anticardiolipin antibody syndrome Carotid artery plaque Coccyx pain Deep vein thrombosis, lower right extremity Encounter for pre-operative examination Fibrocystic breast disease History of cardiac murmur HLD (hyperlipidemia) Osteoarthritis Osteoporosis Sacroiliitis Surgical History Bunion Family History Family/Other No problems noted. Other Adopted Social History Smoking Status: Never smoker Second Hand Exposure: No; Tobacco Cessation Education Requested by Patient: No Hx Alcohol Use: Yes Alcohol type: wine Hx Substance Use: No Preferred Language: Azeri Communication Ability: Effective Senior Quantity Surveyor Required: No Beliefs That Will Affect Care: None marital status: / Current Living Situation: Personal Care Facility Current Living Situation Comment: lives at [facility] in assist living current occupational status: retired Other Information That Helps Us Care for You: No Feels Safe at Home: Yes Safety Concerns: Feels Safe At This Time Childhood Exposure to Second-Hand Smoke: Yes caffeine: Yes Dental Care, Regularly: Yes Physical Activity Frequency: Daily Physical Activity Frequency Comment: walking 50 minutes daily Seatbelt Use: always Sunscreen Use: Yes Assistive Devices: None Physical Exam Constitutional: WD/WN, vitals as above Respiratory: normal respiratory effort, lungs clear to auscultation Cardiovascular: RRR, no murmur, no edema Gastrointestinal (Abdomen): normal bowel sounds, soft, nontender, no hepatosplenomegaly ASA Classification ASA ASA2 Results & Data ([facility]) Vital Signs (Past 12 Hours) Vital Signs Temp Pulse Resp BP Pulse Ox O2 Del Method 06/25/22 15:33 36.8 C 80 16 170/101 H 96 Room Air 06/25/22 08:37 36.8 C 71 16 135/74 95 Room Air Code Status & VTE Plan VTE Prophylaxis Plan VTE Prophylaxis will be ordered: Yes
[2022-06-25] MEDS ORDERED: LIDOCAINE 2% MPF LOCAL 5 ML VIAL INFIL ONE (16:02)
[2022-06-25] MEDS ORDERED: PROPOFOL IV EMULSION 10 MG/ML 20 ML VIAL IV ONE (16:02)
--- NOTE | 2022-06-25 16:20 | Post Operative Brief Note ---
Immediate Post Op Note v1 Date of Surgery June 25, 2022 Pre & Post Diagnosis Operation Date: 06/25/22 16:30 Pre-Op Diagnosis: SEVERE ANEMIA Post-Op Diagnosis: normal I identified the patient and participated in the time-out.: Yes Procedure Operation Date: 06/25/22 16:30 Actual Procedures p Esophagogastroduodenoscopy - Debbie Vital Jr, MD Surgeon Debbie Vital Jr, MD [employer] Worker none Estimated Blood Loss 0 Findings Consistent with Post-Op Diagnosis Normal EGD Anesthesia Type MAC Complications none Disposition Accompanied Patient To Recovery: No Disposition: Recovery Room Overlapping Procedure I was immediately available: during the entire case.
--- NOTE | 2022-06-25 16:22 | GI REPORT ---
Patient Name: Minal Velázquez Procedure Date: 06/25/2022 4:02 PM Date of : 1935 Admit Type: Inpatient Age: 87 Gender: Female Attending MD: Debbie Vital MD Procedure: Upper GI endoscopy Providers: Debbie Vital MD Referring MD: Andrew De Dios Indications: Iron deficiency anemia Medicines: Propofol per Anesthesia Complications: No immediate complications. Estimated Blood Loss: Estimated blood loss: none. Procedure: Pre-Anesthesia Assessment: - Prior to the procedure, a History and Physical was performed, and patient medications and allergies were reviewed. The patient's tolerance of previous anesthesia was also reviewed. The risks and benefits of the procedure and the sedation options and risks were discussed with the patient. All questions were answered, and informed consent was obtained. Prior Anticoagulants: The patient has taken Eliquis (apixaban), last dose was 2 days prior to procedure. ASA Grade Assessment: III - A patient with severe systemic disease. After reviewing the risks and benefits, the patient was deemed in satisfactory condition to undergo the procedure. After obtaining informed consent, the endoscope was passed under direct vision. Throughout the procedure, the patient's blood pressure, pulse, and oxygen saturations were monitored continuously. The Endoscope was introduced through the mouth, and advanced to the second part of duodenum. The upper GI endoscopy was accomplished without difficulty. The patient tolerated the procedure well. Findings: The esophagus was normal. The stomach was normal. The examined duodenum was normal. Impression: - Normal esophagus. - Normal stomach. - Normal examined duodenum. - No specimens collected. Recommendation: - Patient has a contact number available for emergencies. The signs and symptoms of potential delayed complications were discussed with the patient. Return to normal activities tomorrow. Written discharge instructions were provided to the patient. - Resume previous diet. - Continue present medications. Debbie Vital MD 06/25/2022 4:22:15 PM Note Initiated On: 06/25/2022 4:02 PM Number of Addenda: 0 I attest to the content of the Intraoperative Record and orders documented therein, exceptions below {[id number]}
--- NOTE | 2022-06-25 16:42 | Anesthesiology Progress Note ---
Date of Service June 25, 2022 Anesthesia Post Procedure Vital Signs Vital Signs: Temp Pulse Resp BP Pulse Ox O2 Del Method 06/25/22 16:23 77 16 102/61 96 Room Air 06/25/22 15:33 36.8 C 80 16 170/101 H 96 Room Air 06/25/22 08:37 36.8 C 71 16 135/74 95 Room Air 06/24/22 23:22 36.8 C 69 17 106/62 94 Room Air 06/24/22 23:10 37.2 C 109 H 20 123/85 95 Room Air 06/24/22 19:30 78 138/80 94 06/24/22 19:40 Room Air 06/24/22 18:51 36.8 C 80 16 141/82 H 91 Room Air Transfer of Care Handoff Completed per policy Notes Mental Status: alert / awake / arousable Patient Amnestic to Procedure: Yes Nausea / Vomiting: adequately controlled Pain: adequately controlled Airway Patency, RR, SpO2: stable & adequate BP & HR: stable & adequate Hydration State: stable & adequate Anesthetic Complications: no major complications apparent
--- NOTE | 2022-06-25 18:39 | Hospitalist Progress Note ---
Date of Service June 25, 2022 Assessment & Plan (1) Anemia: Plan: Symptomatic anemia, likely chronic from GI blood loss Hgb 4.7 on arrival down from 13 in 11/2021. Diagnosed with "unprovoked DVT" in 12/2021 and placed on Eliquis at that time No obvious bleeding she has noted except did have some epistaxis in 02/2022 and seen by ENT but none since then Denies abd pain or indigestion, but does admit to 30 lb weight loss over 1-2 years and stomach "soreness" with overeating Hemoccult positive in ER but brown stool noted on rectal exam Last GI scopes many years ago at outside facility -admitted to med/surg unit -transfused total of 4 units PRBCs -check CT abd/pel with IV contrast--> shows mild diffuse thickening of stomach which could be c/w gastritis, but no masses in colon, no lymphadenopathy noted -started Protonix 40mg IV bid -hold home Eliquis and Celebrex -follow H&H - following transfusion, hgb up to 10.4, remains stable this AM at 11.2 -GI consulted, performed EGD today, no acute findings, needs a colonoscopy but Dr. Vital feels that this can be done as an outpatient -Repeat CBC in AM and plan for tentative d/c back to [facility] tomorrow (2) Anticardiolipin antibody syndrome: Plan: had seemingly "unprovoked DVT" in 11/2021 that was quite extensive as per Hematology reports throughout RLE Had positive anticardiolipin IgM ab but Hematology thinks this may be due to age and not necessarily APS nonetheless, has been on Eliquis x 6 months -hold Eliquis for now due to GIB and anemia as above -SCDs for DVT prevention (3) HLD (hyperlipidemia): Plan: -continue statin (4) Osteoporosis: Plan: with vertebral compression fractures worst at L1 f/u as outpatient -consider referral to Ortho Spine if has pain but no focal neuro symptoms at this point to suggest cord impingement (5) Osteoarthritis: Plan: hold home Celebrex due to occult GI bleeding -tylenol prn pain (6) Vertebral compression fracture: Plan: as above, seen on CT abd/pel L1 severe with 6 mm retropulsion, no focal neuro signs follow as outpt Plan Repeat CBC in AM. If H&H remains stable, plan for dc back to [facility] and plan for outpatient f/u with [facility]. Plan d/w Dr. De Dios. Admission and Anticipated Discharge Date Admission Date: June 23, 2022 Supervising Physician Co-Signing Physician Notes Attending Attestation - Chart reviewed in detail, care plan d/w HAILY Dyer. I agree with the zavala components of her documentation. Andrew De Dios MD Subjective Patient seen on daily rounds this morning. She reports admitted due to shortness of breath and was found to be profoundly anemic with a hgb of 4.7 s/p transfusion 4 units and H&H has remained stable. She denies cp, dyspnea, dizziness/lightheadedness, abd pain, n/v/d. For EGD today. Review of Systems Review of Systems: All systems reviewed and are unremarkable except as noted in HPI and below. Denies fever, chills, fatigue, headache, nasal congestion, sore throat, cough, chest pain, shortness of breath, palpitations, orthopnea, PND, abdominal pain, n/v/d, constipation, dysuria, hematuria, frequency, back pain, joint pain or swelling, easy bruising or bleeding, skin lesions or rashes. Physical Exam Physical Exam: GENERAL: 87 yo Well-developed, well-nourished elderly WF. NAD. LUNGS: Clear to auscultation bilaterally. No W/R/R. CARDIOVASCULAR: Regular rate and rhythm. ABDOMEN: Soft, non-tender and non-distended. BS normoactive x 4 quad. EXTREMITIES: No edema. Non-tender. Peripheral pulses +2/4. NEUROLOGIC: A&O x3. Nonfocal PSYCHIATRIC: Cooperative. Appropriate mood and affect. SKIN: Warm, dry, intact. No rashes or lesions. Results & Data Results & Data ([facility]) Vital Signs (Past 12 Hours) Vital Signs Temp Pulse Pulse Resp BP Pulse Ox O2 Del Method 06/25/22 17:31 36.7 C 67 16 170/94 H 96 Room Air 06/25/22 16:53 70 16 141/88 H 94 Room Air 06/25/22 16:38 77 71 16 124/69 95 Room Air 06/25/22 16:23 77 16 102/61 96 Room Air 06/25/22 15:33 36.8 C 80 16 170/101 H 96 Room Air 06/25/22 08:37 36.8 C 71 16 135/74 95 Room Air Laboratory Results 06/25/22 07:51 06/25/22 07:51 PG Care Time/CCT Total # of Minutes Spent Total Time Spent with Patient: Total time spent is greater than 50% in coordination of care (as documented) at patient's floor/unit and/or counseling patient: Coding Level of Care Code 33013 Subseq Hosp Care Lvl 2 Diagnoses Anemia D64.9 Anticardiolipin antibody syndrome D68.61 HLD (hyperlipidemia) E78.5 Osteoporosis M81.0 Osteoarthritis M19.90 Vertebral compression fracture M48.50XA
[2022-06-26] MEDS: ACETAMINOPHEN 325 MG TAB PO PRN ×4 (03:04→23:03)
--- NOTE | 2022-06-26 07:48 | Gastroenterology Progress Note ---
Date of Service June 26, 2022 Assessment & Plan (1) Symptomatic anemia: Plan: Doing great. Okay with me to discharge. She is going to make an appt to see me and we will discuss outpatient colonoscopy Admission and Anticipated Discharge Date Admission Date: June 23, 2022 Subjective She is feeling great. Hgb over 11. No signs of bleeding. No complaints Physical Exam Constitutional: WD/WN, vitals as above Results & Data ([facility]) Vital Signs (Past 12 Hours) Vital Signs Temp Pulse Resp BP Pulse Ox 06/25/22 21:40 36.9 C 78 16 114/72 96
[2022-06-26 08:45] LABS: Basophils # (auto) 0.03 K/uL (0-0.2); Basophils % (auto) 0.4 %; Eosinophils # (auto) 0.22 K/uL (0-0.50); Eosinophils % (auto) 2.8 %; Hemoglobin 11.8 g/dl (12.0-16.0); Immature Granulocytes # (auto) 0.02 K/uL (0.00-0.02); Immature Granulocytes % (auto) 0.3 %; Lymphocytes # (auto) 1.36 K/uL (1.2-3.4); Lymphocytes % (auto) 17.4 %; Mean Corpuscular Hgb Conc 32.8 g/dL (32.0-36.0); Mean Corpuscular Volume 82.4 fL (80.0-100.0); Mean Platelet Volume 11.9 fL (9.4-12.3); Monocytes # (auto) 0.89 K/uL (0.24-0.82); Monocytes % (auto) 11.4 %; Neutrophils # (auto) 5.28 K/uL (1.4-6.5); Neutrophils % (auto) 67.7 %; Platelet Count 178 K/uL (130-400); RDW Coefficient of Variation 17.8 % (11.5-14.5); RDW Standard Deviation 53.4 fL (36.4-46.3); Red Blood Count 4.37 M/uL (3.93-5.22)
[2022-06-26] MEDS: ATORVASTATIN 10 MG TAB PO SCH (08:45)
[2022-06-26] MEDS: PANTOprazole 40 MG in SYRINGE 0 ML IV SCH (08:45)
[2022-06-26] MEDS: MECLIZINE HCL 25 MG TAB PO SCH ×2 (08:45→20:23)
[2022-06-26 09:14] LABS: BUN Creatinine Ratio 15.3 (10-20); Calcium 9.1 mg/dl (8.5-10.1); Creatinine Clr Calc Pharmacy 27.5 ml/min; Est GFR (African American) 52.1 ml/min; Est GFR (Non-African American) 44.9 ml/min; Magnesium 2.2 mg/dl (1.7-2.4); Potassium 3.7 mmol/L (3.5-5.1)
[2022-06-26 10:46] LABS: Ferritin 27.1 ng/ml (8-388)
[2022-06-26 10:51] LABS: Folate (Folic Acid) > 22.30 ng/ml (>5.38)
[2022-06-26 10:52] LABS: Vitamin B12 449 pg/ml (180-914)
[2022-06-26] MEDS ORDERED: IRON SUCROSE 200 MG in 0.9 % SODIUM CHLORIDE 100 ML IV ONE (11:30)
[2022-06-26] MEDS ORDERED: POTASSIUM CHLORIDE CRTAB 20 MEQ TABCR PO STA (12:17)
[2022-06-26] MEDS ORDERED: FUROSEMIDE INJ 20 MG/2 ML VIAL IV STA (12:17)
[2022-06-26] MEDS: MAGNESIUM OXIDE 400 MG TAB PO SCH (13:52)
--- NOTE | 2022-06-26 23:19 | Hospitalist Progress Note ---
Date of Service June 26, 2022 Assessment & Plan (1) Anemia: Plan: 2nd to Fe deficiency - presumed chronic GI blood loss. s/p 4 units PRBCs this admission with improved H/H since then. Highly concerning given her 30 pounds of weight loss. s/p EGD yesterday - wnl. Outpatient colonoscopy planned. If that is negative - capsule endo? Give IV venofer 200mg IV x 1. If tolerates then given 300mg IV x 1 tomorrow. H/H stable today. B12/folate wnl. Repeat CBC am. (2) Anticardiolipin antibody syndrome: Plan: unprovoked RLE DVT in 2018 that was quite extensive. Had positive anticardiolipin IgM ab at that time but Hematology thinks this may be due to age and not necessarily APS. had been taking Eliquis 5mg BID for that prior DVT event. repeat LE doppler 2021 negative for residual clot. saw heme/onc in the [facility] in December - they advised ongoing use of Eliquis but lower dose to 2.5mg BID. eliquis has been on hold due to #1 since admission. I spoke with GI - we will cautiously resume given the high risk of recurrent VTE. will resume Wednesday am if H/H tomorrow are stable. (3) HLD (hyperlipidemia): Plan: continue statin (4) Osteoporosis: Plan: with vertebral compression fractures worst at L1 however, no pain at this time (5) Osteoarthritis: Plan: hold home Celebrex due to occult GI bleeding (6) Vertebral compression fracture: Plan: L1 burst fracture - chronic - seen in 2019 severe - now with 6 mm retropulsion fortunately no neurological symptoms from such ambulating fine close outpatient f/u with PCP for this (7) Iron deficiency anemia: Plan: Fe studies c/w such occult GI bleeding until proven otherwise IV venofer today and again tomorrow (8) Severe protein-calorie malnutrition: Plan: 30+ pounds of weight loss in 2021 highly concerning for underlying occult malignancy outpatient colonoscopy planned (9) Acute diastolic CHF (congestive heart failure): Plan: exam and recent cxr c/w such lasix 20mg IV x 1 probably will need additional diruesis tomorrow bmp am mag am consider echo - none found in the hospital record Plan no discharge today Admission and Anticipated Discharge Date Admission Date: June 23, 2022 Subjective patient hoping to go home did mention some mild DIETRICH, however no dyspnea at rest eating well without intolerance no overt GI bleeding or bloody stools Review of Systems Review of Systems: gen - feels good cv - no chest pain pulm - no cough GI - no abd pain, nausea or emesis Physical Exam Physical Exam: gen - NAD neck - mild JVD mouth - MMM heart - regular rate, mildly irregular (extra beats), s1 s2 lungs - rales about [address] up posterior back, no wheeze abd - soft, NT, ND, BS+; +hepatojugular reflex ext - no edema, pulses 2 + b/l Results & Data Results & Data ([facility]) Vital Signs (Past 12 Hours) Vital Signs Temp Pulse Resp BP Pulse Ox O2 Del Method 06/26/22 15:52 36.6 C 72 20 116/71 92 Room Air Laboratory Results Laboratory Results - last 24 hr 06/26/22 06/26/22 06/26/22 08:13 08:13 08:13 WBC 7.80 RBC 4.37 Hgb 11.8 L Hct 36.0 MCV 82.4 MCH 27.0 MCHC 32.8 RDW Std Deviation 53.4 H RDW Coeff of Melinda 17.8 H Plt Count 178 MPV 11.9 Immature Gran % (Auto) 0.3 Neut % (Auto) 67.7 Lymph % (Auto) 17.4 [place] % (Auto) 11.4 Eos % (Auto) 2.8 Baso % (Auto) 0.4 Neut # (Auto) 5.28 Lymph # (Auto) 1.36 [place] # (Auto) 0.89 H Eos # (Auto) 0.22 Baso # (Auto) 0.03 Immature Gran # (Auto) 0.02 Sodium 139 Potassium 3.7 Chloride 108 H Carbon Dioxide 23 Anion Gap 8 BUN 17 Creatinine 1.11 Est Cr Clr Drug Dosing 27.5 Est GFR ( Amer) 52.1 Est GFR (Non-Af Amer) 44.9 BUN/Creatinine Ratio 15.3 Glucose 102 H Calcium 9.1 Magnesium 2.2 Iron 24 L TIBC 348 Unsaturated IBC 324 Transferrin % Sat 7 L Ferritin 27.1 Vitamin B12 Folate 06/26/22 08:17 WBC RBC Hgb Hct MCV MCH MCHC RDW Std Deviation RDW Coeff of Melinad Plt Count MPV Immature Gran % (Auto) Neut % (Auto) Lymph % (Auto) [place] % (Auto) Eos % (Auto) Baso % (Auto) Neut # (Auto) Lymph # (Auto) [place] # (Auto) Eos # (Auto) Baso # (Auto) Immature Gran # (Auto) Sodium Potassium Chloride Carbon Dioxide Anion Gap BUN Creatinine Est Cr Clr Drug Dosing Est GFR ( Amer) Est GFR (Non-Af Amer) BUN/Creatinine Ratio Glucose Calcium Magnesium Iron TIBC Unsaturated IBC Transferrin % Sat Ferritin Vitamin B12 449 Folate > 22.30 PG Care Time/CCT Total # of Minutes Spent Total Time Spent with Patient: Total time spent is greater than 50% in coordination of care (as documented) at patient's floor/unit and/or counseling patient: Coding Level of Care Code 59017 Subseq Hosp Care Lvl 3 Diagnoses Anemia D64.9 Anticardiolipin antibody syndrome D68.61 HLD (hyperlipidemia) E78.5 Osteoporosis M81.0 Osteoarthritis M19.90 Vertebral compression fracture M48.50XA Iron deficiency anemia D50.9 Severe protein-calorie malnutrition E43 Acute diastolic CHF (congestive heart failure) I50.31
[2022-06-27] MEDS ORDERED: ACETAMINOPHEN 325 MG TAB PO STA (02:25)
[2022-06-27 07:29] LABS: Hematocrit (blood only) 37.1 % (34.1-44.9); Hemoglobin 12.2 g/dl (12.0-16.0); Mean Corpuscular Hemoglobin 26.8 pg (25.0-34.0); Mean Corpuscular Hgb Conc 32.9 g/dL (32.0-36.0); Mean Corpuscular Volume 81.5 fL (80.0-100.0); Mean Platelet Volume 11.7 fL (9.4-12.3); Platelet Count 197 K/uL (130-400); RDW Coefficient of Variation 19.1 % (11.5-14.5); RDW Standard Deviation 55.7 fL (36.4-46.3); Red Blood Count 4.55 M/uL (3.93-5.22); White Blood Count 7.41 K/ul (4.8-10.8)
[2022-06-27] MEDS ORDERED: IRON SUCROSE 300 MG in SODIUM CHLORIDE 0.9% 250 ML IV ONE (08:00)
[2022-06-27] MEDS: ACETAMINOPHEN 325 MG TAB PO PRN (08:08)
[2022-06-27] MEDS: ATORVASTATIN 10 MG TAB PO SCH (08:09)
[2022-06-27] MEDS: MECLIZINE HCL 25 MG TAB PO SCH (08:09)
[2022-06-27] MEDS: MAGNESIUM OXIDE 400 MG TAB PO SCH (08:09)
[2022-06-27 08:22] LABS: BUN Creatinine Ratio 16.4 (10-20); Est GFR (African American) 46.5 ml/min; Est GFR (Non-African American) 40.1 ml/min
[2022-06-27] MEDS ORDERED: POTASSIUM CHLORIDE 10 MEQ TABCR PO STA (08:59)
[2022-06-27] MEDS ORDERED: FUROSEMIDE 20 MG TAB PO ONE (09:30)
--- NOTE | 2022-06-27 12:41 | XCELERA ---
[id number]
--- NOTE | 2022-06-27 12:45 | Discharge Summary ---
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 She typically can walk for 45 min at a time but now only 10-15 min before having to stop. She had outpt labs and was advised to come to ER today after hgb came back at 4.7. She denies any hematemesis, hematochezia, melena, epistaxis, hematuria, or vaginal bleeding. No bruising anywhere. Denies abd pain or nausea. She had EGD and colonoscopy in the past but it was many years ago at an outside facility I believe she said was in [place]. She does report s 30 lb weight loss over the last 1-2 years and a sensation of abdominal soreness inher stomach if she overeats. Her vitals were normal in ER. She denies chest pains or lightheadedness, no other symptoms. She was consented and typed and crossed for PRBCs in the ER and will be admitted for severe symptomatic anemia. Principal Diagnosis 1. symptomatic anemia 2. iron deficiency anemia 3. acute HFpEF 4. severe protein calorie malnutrition Discharge Exam gen - NAD neck - JVD resolved mouth - MMM heart - regular rate, mildly irregular (extra beats), s1 s2 lungs - improved basilar rales, no wheeze abd - soft, NT, ND, BS+ ext - no edema, pulses 2 + b/l Discharge Data Allergies Allergy/AdvReac Type Severity Reaction Status Date / Time naproxen Allergy Severe RASH Unverified 06/19/22 15:55 scallops Allergy Severe N/V Unverified 06/19/22 15:55 Consultations [facility] Procedures Performed Operation Date: 06/25/22 16:30 Actual Procedures Esophagogastroduodenoscopy - Debbie Vital Jr, MD * normal esophagus, stomach and duodenum Echocardiogram - EF 55-60%, mild-moderate tricuspid regurgitation, normal PA pressure 4 units PRBCs IV venofer x 2 infusions Ordered Studies Abdomen/Pelvis CT 06/23/22 16:[address] WITH IV CONTRAST CT DOSE: 372.62 mGycm HISTORY: Acute anemia severe anemia,hemoccult positive TECHNIQUE: Multiaxial CT images of the abdomen and pelvis were performed following the IV administration of 95 cc of Optiray, A dose lowering technique was utilized adhering to the principles of ALARA. COMPARISON STUDY: Lumbar spine radiographs of same day and also 06/05/2020 FINDINGS: Cardiomegaly. Bibasilar atelectasis/scarring. There is no pneumatosis or pneumoperitoneum. Mild right hemidiaphragmatic elevation. The spleen is unremarkable. 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 Mild generalized pancreatic atrophy. Unremarkable adrenal glands and gallbladder. Periportal edema may be related to overhydration. The liver is otherwise unremarkable. There is patency of the hepatic and portal veins. Parenchymal and renal sinus cysts are noted within the left greater than right kidneys. Indeterminate 9 mm slightly hypodense lesion of the superior pole left kidney on image 71. No hydronephrosis. Distended urinary bladder. Uterus and adnexa appear unremarkable. Atherosclerosis of the aorta without aneurysm. There is no lymphadenopathy identified. Mild diffuse wall thickening of the stomach, likely secondary to partial distention. Moderate fecal retention. Colonic diverticulosis. No bowel obstruction or bowel wall thickening. There are numerous stool-filled loops of small bowel within the lower abdomen and pelvis. The appendix is nondilated definitively seen. No secondary signs of acute appendicitis. No ascites or mesenteric inflammation. Degenerative changes of the spine, pelvis and hips. Tiny fat filled periumbilical hernia. Chronic appearing right sacral insufficiency fracture. Healed chronic left pelvic ring fractures. L1 burst fracture with 6 mm retropulsion, progressively worsened from 06/05/2020. 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 IMPRESSION: 1. No bowel obstruction or bowel wall thickening. 2. Colonic diverticulosis without acute diverticulitis. 3. Moderate fecal retention with numerous stool-filled loops of small bowel. 4. Mild diffuse wall thickening of the stomach is likely secondary to partial distention. A nonspecific gastritis could appear similarly. 5. Severe L1 burst fracture with 6 mm retropulsion has progressively worsened from 06/05/2020. 6. Indeterminate 9 mm intermediate density lesion of the superior pole left kidney. Correlation with a nonemergent renal ultrasound recommended. 7. Additional findings as above. ACT 112: Negative or not required by law. The above report was generated using voice recognition software. It may contain grammatical, syntax or spelling errors. Electronically signed by: Jaiden Matthews M.D. 06/23/2022 6:05 PM Chest X-Ray 06/24/22 06:30 XR chest 1V portable CLINICAL HISTORY: assess for fluid overload COMPARISON STUDY: Chest radiograph June 23, 2022. FINDINGS: No pneumothorax or pleural effusion is identified. There has been interval development of interstitial pulmonary edema. Cardiomediastinal silhouette is stable. No consolidation is identified. IMPRESSION: Interval development of interstitial pulmonary edema. ACT 112: Negative or not required by law. Electronically signed by: Troy Salas M.D. 06/24/2022 7:50 AM Hospital Course (1) Anemia: 2nd to severe Fe deficiency - presumed chronic GI blood loss. s/p 4 units PRBCs this admission with improved H/H. Discharge hemoglobin was 12.2. Her anemia is highly concerning given her 30 pounds of weight loss in 2021. EGD by [facility] this admission was completely normal. Outpatient colonoscopy planned by [facility]. If colonoscopy is negative - capsule endo? In addition to PRBCs she received IV venofer x 2 infusions. B12/folate levels were wnl. She will need close follow-up with [facility] shortly after discharge. (2) Iron deficiency anemia: Fe studies c/w such; ferritin was 27. Etiology -- occult GI bleeding until proven otherwise. IV venofer x 2 infusions. PRBCs x 4 units. Discharge Hb 12.2. Outpatient colonoscopy planned by [facility]. 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 Had positive anticardiolipin IgM ab at that time but Hematology thinks this may have been due to age and not necessarily APS. Had been taking Eliquis 5mg BID for that prior DVT event. Repeat LE doppler 12/2021 was negative for DVT. Saw heme/onc in the [facility] in December 2001 - they advised ongoing use of Eliquis but a lower dose of 2.5mg BID. Eliquis was on hold during this stay due to #1. I spoke with GI - we will cautiously resume given the high risk of recurrent VTE. She will resume Eliquis 2.5mg BID 24 hours post-discharge. (4) HLD (hyperlipidemia): continue statin (5) Osteoporosis: with vertebral compression fractures worst at L1 however, no pain in the lumbar region at this time (6) Osteoarthritis: cont to hold home Celebrex due to suspected occult GI bleeding (7) Vertebral compression fracture: L1 burst fracture - chronic - seen in 2019 severe - now with 6 mm retropulsion fortunately no neurological symptoms from such no back pain ambulating fine close outpatient f/u with PCP for this (8) Severe protein-calorie malnutrition: 30+ pounds of weight loss in 2021 highly concerning for underlying occult malignancy outpatient colonoscopy planned (9) Acute diastolic CHF (congestive heart failure): exam and recent cxr c/w such received diuresis during the stay likely due to volume overload in the setting of 4 units of PRBCs echo with preserved EF she will take 1 additional dose of lasix the day after discharge she appeared relatively euvolemic at time of dismissal from the hospital o2 sats were wnl in room air (10) Lesion of left cocopah kidney: Per her CT abd/pelvis -- "9 mm intermediate density lesion of the superior pole left kidney. Correlation with a nonemergent renal ultrasound recommended." Focus right now should be on the GI work-up as delineated above. If GI work-up is negative then consider ultrasound of left kidney. Total Time Total Time Spent Total Time Spent (In Minutes): 60 Discharge Plan Discharge Items Patient Disposition: Home - Self-Care Reason For Visit: SEVERE ANEMIA Discharge Diagnosis: 1. severe iron deficiency anemia; presenting hemoglobin 4.7; discharge hemoglobin 12 (12 is very normal) 2. concern for occult gastrointestinal blood loss leading to low iron - follow- up with [facility] needed 3. mild fluid build-up in the lungs - due to blood transfusion (4 units of blood) - resolved, normal oxygen levels 4. history of right leg DVT blood clots 5. L1 compression fracture - chronic Condition on Discharge: Good Activity: Resume your previous activity Non-emergency contact: Primary Care Provider and Primary Care Nurse Practitioner Call non-emergency contact if: you have any medication questions and your symptoms worsen Follow-up/Referrals: Demetris Elias MD [Primary Care Provider] - 07/06/22 11:00 am (Appointment will be with Daysi Horner PA-C) Debbie Vital Jr, MD [Physician] - 07/17/22 10:20 am Diet: Regular Ambulatory Orders: Basic Metabolic Panel (Routine) Timeframe: 20220702 Location: Determined by Patient Ordered By: Andrew De Dios Complete Blood Count no Diff (Timed) Timeframe: 20220702 Location: Determined by Patient Ordered By: Andrew De Dios Addkwasi Attending Provider Instructions: Mrs Velázquez, Tayo were hospitalized for SEVERE anemia. The anemia (low red blood cells) was due to severe iron deficiency. You received a total of 4 units of blood and 2 infusions of iron. Your hemoglobin on day of discharge is about 12. Iron deficiency anemia in adults is presumed to be from gastrointestinal blood loss until proven otherwise. To that end you underwent upper endoscopy by Dr Vital, [facility], which was normal and did not show an area of bleeding. You will need a colonoscopy and Dr Vital will see you in the clinic to coordinate that. When adults receive blood, especially a large quantity, sometimes a little fluid enters the lungs. You received diuretics while here to remove that fluid. Your echocardiogram of your heart showed normal heart function. Recommendations - 1. take furosemide 20mg x 1 on Wednesday morning, 06/28/22; this is your diuretic. 2. no need to take supplemental oral iron at home since you received IV iron here. 3. please STOP your celebrex. Please do not take aspirin, motrin, ibuprofen, naprosyn, or alleve. 4. please LOWER your Eliquis dose to 2.5mg twice daily (previous dose was 5mg twice daily). 5. ok to take [id number] tylenol as needed for aches/pains. Up to 3000mg in 24 hours is acceptable. Tylenol does not contribute to low iron or gastrointestinal bleeding. 6. please obtain a blood draw on 07/02/22. This can be done at any of the [facility] clinic locations or the hospital. We are repeating your blood counts at that time. 7. follow-up appointments - see separate section. 8. of note - your imaging of your spine showed a compression fracture at lumbar level 1 ("L1"); this compression fracture is old/chronic; it has worsened over time but does not appear to be causing problems; please follow-up with your family doctor for this. Compression fractures occur as a result of osteoporosis. See handout. Return to [facility] if - * you have severe weakness, fatigue, dizziness, or lightheadedness * you have shortness of breath or chest pain * you see black, dark, or tarry stools * you have bright red blood in your stools * any other concerns It was our pleasure to care for you at [facility]! Dr De Dios Pending Studies at Discharge: No Stand-Alone Forms: My [facility], Smoking Cessation Medications and DC Order Prescriptions: New furosemide [Lasix] 20 mg tablet 20 mg PO ONCE Qty: 1 0RF Rx Instructions: take on 06/28/22 AM. Continued atorvastatin 10 mg tablet 10 mg PO DAILY Qty: 90 3RF ibandronate 150 mg tablet See Rx Instructions .ROUTE .COMPLEX Qty: 3 3RF Dose Instruction: TAKE ONE TABLET BY MOUTH MONTHLY WITH 8-10 OZ OF WATER, STAY UPRIGHT AND DO NOT EAT OR DRINK FOR ONE HOUR Rx Instructions: TAKE ONE TABLET BY MOUTH MONTHLY WITH 8-10 OZ OF WATER, STAY UPRIGHT AND DO NOT EAT OR DRINK FOR ONE HOUR cholecalciferol (vitamin D3) 50 mcg (2,000 unit) capsule See Rx Instructions PO .COMPLEX Rx Instructions: CLARIFY DOSE AND FREQUENCY meclizine 25 mg tablet 25 mg PO BID Qty: 60 0RF Ocuvite [id number] [id number]-mg capsule 1 cap PO .Q3W Changed acetaminophen [Tylenol] 325 mg capsule 650 mg PO QID PRN (Reason: as directed) Qty: 1 0RF apixaban 2.5 mg tablet 2.5 mg PO BID Qty: 60 5RF Discontinued celecoxib [Celebrex] 200 mg capsule 200 mg PO DAILY Qty: 90 3RF Discharge Orders: Discharge Order (Routine); Ordered 06/27/22 Ordered By: Andrew Duffy/Other Patient Handouts: Compression Fx, ED Anemia, Iron-Deficiency (Adult) Admission Data Admit Date/Time: 06/23/22 17:14 Attending Provider: Andrew De Dios Admit Provider: Lyn Soares Primary Care Provider: Demetris Elias Other Providers: Lyn Soares ; Debbie Vital Jr Other Interventions: Discharge Summary Assessment (RN) Last Done: 06/27/22 13:22 Coding Level of Care Code D/C DAY MANAGEMENT >30 MINS Diagnoses Anemia D64.9 Iron deficiency anemia D50.9 Anticardiolipin antibody syndrome D68.61 HLD (hyperlipidemia) E78.5 Osteoporosis M81.0 Osteoarthritis M19.90 Vertebral compression fracture M48.50XA Severe protein-calorie malnutrition E43 Acute diastolic CHF (congestive heart failure) I50.31 Lesion of left cocopah kidney N28.9
== END 2022-06-27 14:33 | disposition home or self-care (01) | DRG 811 ==
LOC: ED 15:30 → SUATTDRO 17:14 → EDINP 17:14 → 3W 21:35